=== PATIENT | female | born 1940 | race Caucasian/White ===

== ENCOUNTER 2020-12-08 16:19 | Inpatient (IN) ==
[2020-12-08] MEDS ORDERED: Naloxone 0.4 MG/ML INJ IVP PRN (22:36)
[2020-12-08] MEDS ORDERED: Acetaminophen 325 MG TABLET PO PRN (22:36)
[2020-12-08] MEDS ORDERED: Ondansetron 4 MG/2 ML VIAL IVP PRN (22:36)
[2020-12-08] MEDS ORDERED: *HR* Heparin 5,000 UNIT/ML VIAL IVP PRN ×2 (22:45)
[2020-12-08] MEDS ORDERED: 0.9 % Sodium Chloride 1,000 ML IVC SCH (22:45)
[2020-12-08] MEDS ORDERED: 0.9 % Sodium Chloride 1,000 ML IVC ONE (22:46)
[2020-12-08] MEDS ORDERED: D5% in Water 1,000 ML IVC PRN (22:56)
[2020-12-08] MEDS ORDERED: *HR* Dextrose 50 % in Water (Vial) 50 ML VIAL IVP PRN (22:56)
[2020-12-08] MEDS ORDERED: Dextrose Gel 15 GM/37.5 ML TUBE PO PRN (22:56)
[2020-12-08 23:31] LABS: Heparin anti-factor XA UFH 0.15 IU/mL (0.30-0.70); INR 1.5; Prothrombin Time 16.9 Seconds (9.4-12.1)
[2020-12-08 23:33] LABS: Activated Partial Thrombo Time 27.4 Seconds (26.0-36.0)
[2020-12-08 23:40] LABS: Hematocrit 39.5 % (35.3-44.9); Hemoglobin 12.3 g/dL (11.5-15.4); Mean Corpuscular HGB Conc 31.1 g/dL (31.6-35.5); Mean Corpuscular Volume 96.3 fL (83.0-100.0); Mean Platelet Volume 10.6 fL (9.4-12.4); Platelet Count 241 K/mcL (140-400); Red Cell Distribution Width 15.9 % (11.5-14.5); White Blood Count 7.7 K/mcL (4.3-11.1)
[2020-12-08] MEDS: Heparin 25,000UNIT/250ML 1/2NS 25,000 UNIT/250 ML IV.SOLN IVC SCH (23:45)
[2020-12-09] MEDS: Insulin LISPRO 300 UNITS/3 ML VIAL SUBQ SCH ×5 (00:05→21:42)
[2020-12-09 03:07] LABS: Basophils # 0.1 K/mcL (0.0-0.2); Basophils % 0.6 %; Eosinophils # 0.1 K/mcL (0.0-0.6); Eosinophils % 1.2 %; Hematocrit 42.2 % (35.3-44.9); Hemoglobin 12.9 g/dL (11.5-15.4); Immature Granulocytes % 0.5 % (0-4); Lymphocytes % 12.5 %; Mean Corpuscular HGB Conc 30.6 g/dL (31.6-35.5); Mean Corpuscular Hemoglobin 29.9 pg (28.0-33.3); Mean Corpuscular Volume 97.7 fL (83.0-100.0); Mean Platelet Volume 10.7 fL (9.4-12.4); Monocytes # 0.6 K/mcL (0.0-1.3); Monocytes % 7.8 %; Neutrophils # 6.2 K/mcL (1.6-8.9); Platelet Count 227 K/mcL (140-400); Red Blood Count 4.32 M/mcL (3.82-4.97); Red Cell Distribution Width 15.9 % (11.5-14.5); Segmented Neutrophils % 77.4 %; White Blood Count 8.1 K/mcL (4.3-11.1)
[2020-12-09 03:16] LABS: INR 1.5; Prothrombin Time 17.6 Seconds (9.4-12.1)
[2020-12-09 03:23] LABS: Calcium 8.7 mg/dL (8.6-10.3); Magnesium 1.9 mg/dL (1.6-2.6); Potassium 4.4 mEq/L (3.5-5.1)
[2020-12-09] MEDS: carvediloL 25 MG TABLET PO SCH (16:53)
[2020-12-09] MEDS ORDERED: *HR* Warfarin 2.5 MG TABLET PO ONE (18:00)
[2020-12-09] MEDS ORDERED: *HR* Warfarin 5 MG TABLET PO ONE (18:00)
[2020-12-09] MEDS ORDERED: Warfarin perPT PO PRN (18:00)
[2020-12-10] MEDS: Heparin 25,000UNIT/250ML 1/2NS 25,000 UNIT/250 ML IV.SOLN IVC SCH ×2 (03:31→22:42)
[2020-12-10] MEDS: Aspirin Enteric Coated 81 MG Tablet PO SCH (08:51)
[2020-12-10] MEDS: carvediloL 25 MG TABLET PO SCH ×2 (08:52→17:47)
[2020-12-10] MEDS: Insulin LISPRO 300 UNITS/3 ML VIAL SUBQ SCH ×4 (08:56→20:30)
[2020-12-10 10:12] LABS: INR 1.4; Prothrombin Time 15.6 Seconds (9.4-12.1)
[2020-12-10 10:19] LABS: Potassium 4.9 mEq/L (3.5-5.1)
[2020-12-10] MEDS ORDERED: 0.9 % Sodium Chloride 1,000 ML IVC SCH (12:30)
[2020-12-10] MEDS ORDERED: *HR* Warfarin 2.5 MG TABLET PO ONE (18:00)
[2020-12-10] MEDS: Insulin DETEMIR 100 UNIT/ML X5UNITS SUBQ SCH (20:30)
[2020-12-11 07:49] LABS: Basophils % 0.7 %; Eosinophils # 0.2 K/mcL (0.0-0.6); Eosinophils % 2.8 %; Hematocrit 35.6 % (35.3-44.9); Immature Granulocytes % 0.3 % (0-4); Lymphocytes # 0.7 K/mcL (0.6-4.6); Lymphocytes % 11.5 %; Mean Corpuscular HGB Conc 30.1 g/dL (31.6-35.5); Mean Corpuscular Hemoglobin 29.9 pg (28.0-33.3); Mean Corpuscular Volume 99.4 fL (83.0-100.0); Mean Platelet Volume 10.4 fL (9.4-12.4); Monocytes # 0.4 K/mcL (0.0-1.3); Monocytes % 6.3 %; Neutrophils # 4.7 K/mcL (1.6-8.9); Platelet Count 185 K/mcL (140-400); Red Blood Count 3.58 M/mcL (3.82-4.97); Red Cell Distribution Width 16.6 % (11.5-14.5); Segmented Neutrophils % 78.4 %
[2020-12-11 07:52] LABS: Hemoglobin 10.7 g/dL (11.5-15.4)
[2020-12-11 07:59] LABS: Heparin anti-factor XA UFH 0.56 IU/mL (0.30-0.70)
[2020-12-11 08:00] LABS: INR 1.2; Prothrombin Time 14.2 Seconds (9.4-12.1)
[2020-12-11] MEDS: carvediloL 25 MG TABLET PO SCH ×2 (08:06→17:05)
[2020-12-11 08:07] LABS: Calcium 8.5 mg/dL (8.6-10.3); Potassium 4.2 mEq/L (3.5-5.1)
[2020-12-11] MEDS: Insulin LISPRO 300 UNITS/3 ML VIAL SUBQ SCH ×4 (08:07→22:58)
[2020-12-11] MEDS: Aspirin Enteric Coated 81 MG Tablet PO SCH (08:07)
[2020-12-11] MEDS ORDERED: 0.9 % Sodium Chloride 1,000 ML IVC SCH (13:30)
[2020-12-11] MEDS ORDERED: *HR* Warfarin 5 MG TABLET PO ONE (18:00)
[2020-12-11] MEDS ORDERED: hydrOXYzine pamoate 25 MG CAPSULE PO ONE (20:24)
[2020-12-11] MEDS: Heparin 25,000UNIT/250ML 1/2NS 25,000 UNIT/250 ML IV.SOLN IVC SCH (22:51)
[2020-12-11] MEDS: Insulin DETEMIR 100 UNIT/ML X5UNITS SUBQ SCH (22:58)
[2020-12-12 05:08] LABS: Basophils % 0.3 %; Eosinophils # 0.2 K/mcL (0.0-0.6); Eosinophils % 3.8 %; Hematocrit 35.7 % (35.3-44.9); Hemoglobin 10.7 g/dL (11.5-15.4); Immature Granulocytes % 0.3 % (0-4); Lymphocytes # 0.7 K/mcL (0.6-4.6); Lymphocytes % 11.2 %; Mean Corpuscular Hemoglobin 29.7 pg (28.0-33.3); Mean Corpuscular Volume 99.2 fL (83.0-100.0); Mean Platelet Volume 10.7 fL (9.4-12.4); Monocytes # 0.6 K/mcL (0.0-1.3); Monocytes % 9.5 %; Neutrophils # 4.4 K/mcL (1.6-8.9); Platelet Count 172 K/mcL (140-400); Red Cell Distribution Width 17.1 % (11.5-14.5); Segmented Neutrophils % 74.9 %; White Blood Count 5.8 K/mcL (4.3-11.1)
[2020-12-12 05:23] LABS: INR 1.4; Prothrombin Time 16.4 Seconds (9.4-12.1)
[2020-12-12 05:25] LABS: Calcium 8.5 mg/dL (8.6-10.3); Potassium 4.2 mEq/L (3.5-5.1)
[2020-12-12] MEDS: Insulin LISPRO 300 UNITS/3 ML VIAL SUBQ SCH ×4 (07:40→20:23)
[2020-12-12] MEDS: Insulin DETEMIR 100 UNIT/ML X5UNITS SUBQ SCH ×2 (09:36→20:23)
[2020-12-12] MEDS: carvediloL 25 MG TABLET PO SCH ×2 (09:36→17:41)
[2020-12-12] MEDS: Aspirin Enteric Coated 81 MG Tablet PO SCH (09:36)
[2020-12-12] MEDS: *HR* Enoxaparin 60 MG/0.6 ML SYRINGE SQ SCH (09:36)
[2020-12-12] MEDS ORDERED: *HR* Warfarin 5 MG TABLET PO ONE (18:00)
[2020-12-13 05:15] LABS: INR 1.9; Prothrombin Time 21.3 Seconds (9.4-12.1)
[2020-12-13 05:23] LABS: Calcium 8.5 mg/dL (8.6-10.3); Potassium 4.4 mEq/L (3.5-5.1)
[2020-12-13] MEDS: Insulin LISPRO 300 UNITS/3 ML VIAL SUBQ SCH ×3 (07:48→16:15)
[2020-12-13] MEDS: Aspirin Enteric Coated 81 MG Tablet PO SCH (09:25)
[2020-12-13] MEDS: carvediloL 25 MG TABLET PO SCH ×2 (09:25→15:48)
[2020-12-13] MEDS: *HR* Enoxaparin 60 MG/0.6 ML SYRINGE SQ SCH (09:26)
[2020-12-13] MEDS: Insulin DETEMIR 100 UNIT/ML X5UNITS SUBQ SCH ×2 (09:26→21:30)
[2020-12-13] MEDS ORDERED: Dextrose Gel 15 GM/37.5 ML TUBE PO PRN (13:56)
[2020-12-13] MEDS ORDERED: QUEtiapine Fumarate 25 MG TABLET PO ONE (14:41)
[2020-12-13] MEDS ORDERED: *HR* Warfarin 2.5 MG TABLET PO ONE (18:00)
[2020-12-13] MEDS ORDERED: Haloperidol Lactate 5 MG/ML VIAL IVP ONE (21:53)
[2020-12-14 05:02] LABS: INR 2.7
[2020-12-14 05:07] LABS: Potassium 5.2 mEq/L (3.5-5.1)
[2020-12-14] MEDS: carvediloL 25 MG TABLET PO SCH ×2 (10:04→16:07)
[2020-12-14] MEDS: Aspirin Enteric Coated 81 MG Tablet PO SCH (10:04)
[2020-12-14] MEDS: Insulin DETEMIR 100 UNIT/ML X5UNITS SUBQ SCH ×2 (10:04→21:27)
[2020-12-14] MEDS: Insulin LISPRO 300 UNITS/3 ML VIAL SUBQ SCH ×3 (10:04→16:05)
[2020-12-14 10:47] LABS: VBG HCO3 19 mEq/L (21-27); VBG PCO2 35 mmHg (41-51); VBG PH 7.34 pH Units (7.32-7.42); VBG PO2 68 mmHg (25-50)
[2020-12-14 10:48] LABS: Calcium 9.2 mg/dL (8.6-10.3); Potassium 5.1 mEq/L (3.5-5.1)
[2020-12-14] MEDS: QUEtiapine Fumarate 25 MG TABLET PO SCH ×2 (12:07→21:27)
[2020-12-14] MEDS: cefTRIAXone 1,000 MG in Water for inj. (sterile) 10 ML IVP SCH (12:08)
[2020-12-14] MEDS ORDERED: Haloperidol Lactate 5 MG/ML VIAL IVP STA (18:19)
[2020-12-14] MEDS ORDERED: Sodium Bicarbonate 50 MEQ/50 ML VIAL IVP ONE (21:35)
[2020-12-15 07:48] LABS: Basophils % 0.6 %; Eosinophils # 0.2 K/mcL (0.0-0.6); Eosinophils % 4.4 %; Hematocrit 37.1 % (35.3-44.9); Hemoglobin 11.4 g/dL (11.5-15.4); Immature Granulocytes % 0.2 % (0-4); Lymphocytes # 0.5 K/mcL (0.6-4.6); Lymphocytes % 10.8 %; Mean Corpuscular HGB Conc 30.7 g/dL (31.6-35.5); Mean Corpuscular Hemoglobin 29.8 pg (28.0-33.3); Mean Corpuscular Volume 97.1 fL (83.0-100.0); Mean Platelet Volume 10.5 fL (9.4-12.4); Monocytes # 0.4 K/mcL (0.0-1.3); Monocytes % 8.7 %; Neutrophils # 3.6 K/mcL (1.6-8.9); Platelet Count 171 K/mcL (140-400); Red Blood Count 3.82 M/mcL (3.82-4.97); Red Cell Distribution Width 17.8 % (11.5-14.5); Segmented Neutrophils % 75.3 %; White Blood Count 4.8 K/mcL (4.3-11.1)
[2020-12-15] MEDS: Aspirin Enteric Coated 81 MG Tablet PO SCH (07:55)
[2020-12-15] MEDS: QUEtiapine Fumarate 25 MG TABLET PO SCH ×2 (07:56→20:27)
[2020-12-15] MEDS: carvediloL 25 MG TABLET PO SCH ×2 (07:56→16:18)
[2020-12-15] MEDS: Insulin LISPRO 300 UNITS/3 ML VIAL SUBQ SCH ×3 (07:57→16:12)
[2020-12-15] MEDS: cefTRIAXone 1,000 MG in Water for inj. (sterile) 10 ML IVP SCH (07:57)
[2020-12-15] MEDS: Insulin DETEMIR 100 UNIT/ML X5UNITS SUBQ SCH (08:03)
[2020-12-15 08:14] LABS: INR 2.5; Prothrombin Time 28.2 Seconds (9.4-12.1)
[2020-12-15 08:36] LABS: Calcium 9.3 mg/dL (8.6-10.3); Potassium 4.5 mEq/L (3.5-5.1)
[2020-12-15] MEDS ORDERED: Ipratropium/Albuterol Neb 3 ML IH PRN (15:42)
[2020-12-15 16:26] LABS: ABG Base Excess -3 mEq/L (-2 to 3); ABG HCO3 21 mEq/L (21-27); ABG Oxygen Saturation 97 % (95-98); ABG PCO2 32 mmHg (35-45); ABG PH 7.42 pH Units (7.32-7.45); ABG PO2 83 mmHg (85-104); ABG TCO2 22 mEq/L (20-26)
[2020-12-15] MEDS ORDERED: *HR* Warfarin 2.5 MG TABLET PO ONE (18:00)
[2020-12-16 02:27] LABS: INR 2.4; Prothrombin Time 26.8 Seconds (9.4-12.1)
[2020-12-16 02:32] LABS: Calcium 9.3 mg/dL (8.6-10.3); Phosphorous 3.1 mg/dL (2.7-4.5)
[2020-12-16 03:01] LABS: Folate 8.3 ng/mL (3.0-16.0)
[2020-12-16] MEDS: Aspirin Enteric Coated 81 MG Tablet PO SCH (08:04)
[2020-12-16] MEDS: QUEtiapine Fumarate 25 MG TABLET PO SCH ×2 (08:04→21:01)
[2020-12-16] MEDS: carvediloL 25 MG TABLET PO SCH ×2 (08:04→17:40)
[2020-12-16] MEDS: Folic Acid 1 MG TABLET PO SCH (08:04)
[2020-12-16] MEDS: Insulin LISPRO 300 UNITS/3 ML VIAL SUBQ SCH ×3 (08:08→17:41)
[2020-12-16] MEDS ORDERED: *HR* Warfarin 2.5 MG TABLET PO ONE (18:00)
[2020-12-16] MEDS: Insulin DETEMIR 100 UNIT/ML X5UNITS SUBQ SCH (21:01)
[2020-12-17 06:26] LABS: INR 2.3; Prothrombin Time 26.5 Seconds (9.4-12.1)
[2020-12-17 06:40] LABS: Calcium 8.7 mg/dL (8.6-10.3); Magnesium 1.9 mg/dL (1.6-2.6); Phosphorous 3.2 mg/dL (2.7-4.5)
[2020-12-17] MEDS: Insulin LISPRO 300 UNITS/3 ML VIAL SUBQ SCH ×3 (07:33→16:05)
[2020-12-17] MEDS: carvediloL 25 MG TABLET PO SCH ×2 (08:13→17:40)
[2020-12-17] MEDS: Vitamin B Complex/Vit C/Vit E 1 EACH TABLET PO SCH (08:13)
[2020-12-17] MEDS: QUEtiapine Fumarate 25 MG TABLET PO SCH ×2 (08:13→21:32)
[2020-12-17] MEDS: Aspirin Enteric Coated 81 MG Tablet PO SCH (08:13)
[2020-12-17] MEDS: Folic Acid 1 MG TABLET PO SCH (08:14)
[2020-12-17] MEDS ORDERED: *HR* Warfarin 2.5 MG TABLET PO ONE (18:00)
[2020-12-17] MEDS: Insulin DETEMIR 100 UNIT/ML X5UNITS SUBQ SCH (21:32)
[2020-12-18 01:33] LABS: Calcium 8.8 mg/dL (8.6-10.3); Phosphorous 3.5 mg/dL (2.7-4.5); Potassium 5.1 mEq/L (3.5-5.1)
[2020-12-18] MEDS: Aspirin Enteric Coated 81 MG Tablet PO SCH (09:30)
[2020-12-18] MEDS: Vitamin B Complex/Vit C/Vit E 1 EACH TABLET PO SCH (09:30)
[2020-12-18] MEDS: Folic Acid 1 MG TABLET PO SCH (09:30)
[2020-12-18] MEDS: QUEtiapine Fumarate 25 MG TABLET PO SCH ×2 (09:31→20:11)
[2020-12-18] MEDS: carvediloL 25 MG TABLET PO SCH ×2 (09:31→18:26)
[2020-12-18] MEDS: Insulin LISPRO 300 UNITS/3 ML VIAL SUBQ SCH ×3 (09:37→18:26)
[2020-12-18 09:52] LABS: INR 2.2; Prothrombin Time 24.6 Seconds (9.4-12.1)
[2020-12-18] MEDS ORDERED: *HR* Warfarin 2.5 MG TABLET PO ONE (18:00)
[2020-12-18] MEDS: Insulin DETEMIR 100 UNIT/ML X5UNITS SUBQ SCH (20:10)
[2020-12-19 02:08] LABS: INR 2.4; Prothrombin Time 27.6 Seconds (9.4-12.1)
[2020-12-19 02:19] LABS: Calcium 8.7 mg/dL (8.6-10.3); Phosphorous 3.7 mg/dL (2.7-4.5); Potassium 5.1 mEq/L (3.5-5.1)
[2020-12-19] MEDS: Folic Acid 1 MG TABLET PO SCH (08:00)
[2020-12-19] MEDS: QUEtiapine Fumarate 25 MG TABLET PO SCH ×2 (08:00→21:25)
[2020-12-19] MEDS: carvediloL 25 MG TABLET PO SCH ×2 (08:00→16:20)
[2020-12-19] MEDS: Insulin LISPRO 300 UNITS/3 ML VIAL SUBQ SCH ×3 (08:00→16:20)
[2020-12-19] MEDS: Vitamin B Complex/Vit C/Vit E 1 EACH TABLET PO SCH (08:00)
[2020-12-19] MEDS: Aspirin Enteric Coated 81 MG Tablet PO SCH (08:00)
[2020-12-19] MEDS ORDERED: Torsemide 20 MG TABLET PO SCH (09:00)
[2020-12-19] MEDS ORDERED: *HR* Warfarin 2.5 MG TABLET PO ONE (18:00)
[2020-12-19] MEDS: Insulin DETEMIR 100 UNIT/ML X5UNITS SUBQ SCH (21:25)
[2020-12-20 02:49] LABS: Basophils % 0.5 %; Hemoglobin 10.2 g/dL (11.5-15.4); Mean Platelet Volume 11.2 fL (9.4-12.4)
[2020-12-20 02:51] LABS: Eosinophils # 0.1 K/mcL (0.0-0.6); Eosinophils % 0.8 %; Hematocrit 34.9 % (35.3-44.9); Immature Granulocytes % 0.5 % (0-4); Immature Platelets 5.5 % (1.1-6.1); Lymphocytes # 0.7 K/mcL (0.6-4.6); Lymphocytes % 9.3 %; Mean Corpuscular HGB Conc 29.2 g/dL (31.6-35.5); Mean Corpuscular Hemoglobin 29.5 pg (28.0-33.3); Mean Corpuscular Volume 100.9 fL (83.0-100.0); Monocytes # 0.8 K/mcL (0.0-1.3); Neutrophils # 6.2 K/mcL (1.6-8.9); Platelet Count 149 K/mcL (140-400); Red Blood Count 3.46 M/mcL (3.82-4.97); Red Cell Distribution Width 17.4 % (11.5-14.5); Segmented Neutrophils % 78.9 %; White Blood Count 7.9 K/mcL (4.3-11.1)
[2020-12-20 02:56] LABS: INR 2.4; Prothrombin Time 27.3 Seconds (9.4-12.1)
[2020-12-20 03:11] LABS: Calcium 8.8 mg/dL (8.6-10.3); Phosphorous 4.4 mg/dL (2.7-4.5); Potassium 5.3 mEq/L (3.5-5.1)
[2020-12-20] MEDS ORDERED: Albumin 25% 25gram/100mL 25 GM/100 ML IV.SOLN IVPB SCH (08:00)
[2020-12-20] MEDS: Insulin LISPRO 300 UNITS/3 ML VIAL SUBQ SCH ×3 (08:28→17:08)
[2020-12-20] MEDS: Vitamin B Complex/Vit C/Vit E 1 EACH TABLET PO SCH (08:51)
[2020-12-20] MEDS: carvediloL 25 MG TABLET PO SCH ×2 (08:51→16:50)
[2020-12-20] MEDS: QUEtiapine Fumarate 25 MG TABLET PO SCH (08:51)
[2020-12-20] MEDS: Folic Acid 1 MG TABLET PO SCH (08:51)
[2020-12-20] MEDS: Aspirin Enteric Coated 81 MG Tablet PO SCH (08:52)
[2020-12-20 15:46] VITALS: BP 125/73
[2020-12-20] MEDS ORDERED: *HR* Warfarin 2.5 MG TABLET PO ONE (18:00)
== END 2020-12-20 17:15 | DRG 637 ==
LOC: 2NENU → SUATTDRO 21:11 → 2ANU 12-09 22:49 → SUATTDRO 12-11 13:21
PROVIDERS: ADMIT Family Medicine; ATTEND Internal Medicine

== ENCOUNTER 2021-01-21 20:28 | Inpatient (IN) ==
[2021-01-21 21:55] LABS: Basophils % 0.7 %; Eosinophils # 0.2 K/mcL (0.0-0.6); Eosinophils % 2.5 %; Hematocrit 31.3 % (35.3-44.9); Hemoglobin 9.3 g/dL (11.5-15.4); Immature Granulocytes % 0.3 % (0-4); Lymphocytes # 0.8 K/mcL (0.6-4.6); Lymphocytes % 13.1 %; Mean Corpuscular HGB Conc 29.7 g/dL (31.6-35.5); Mean Corpuscular Hemoglobin 29.1 pg (28.0-33.3); Mean Corpuscular Volume 97.8 fL (83.0-100.0); Mean Platelet Volume 9.9 fL (9.4-12.4); Monocytes # 0.5 K/mcL (0.0-1.3); Monocytes % 8.3 %; Neutrophils # 4.6 K/mcL (1.6-8.9); Platelet Count 196 K/mcL (140-400); Red Cell Distribution Width 16.7 % (11.5-14.5); Segmented Neutrophils % 75.1 %; White Blood Count 6.1 K/mcL (4.3-11.1)
[2021-01-21 22:12] LABS: Troponin I 0.03 ng/mL (< 0.04)
[2021-01-22] MEDS ORDERED: Furosemide 40 MG/4 ML VIAL IVP ONE (00:11)
[2021-01-22] MEDS ORDERED: methylPREDNISolone 125 MG/2 ML VIAL IVP ONE (00:12)
[2021-01-22] MEDS: Ipratropium/Albuterol Neb 3 ML IH SCH ×3 (00:45→21:28)
[2021-01-22] MEDS ORDERED: Ondansetron 4 MG/2 ML VIAL IVP PRN (00:54)
[2021-01-22] MEDS ORDERED: Acetaminophen 325 MG TABLET PO PRN (00:54)
[2021-01-22] MEDS ORDERED: Naloxone 0.4 MG/ML INJ IVP PRN (00:54)
[2021-01-22] MEDS ORDERED: D5% in Water 1,000 ML IVC PRN (00:57)
[2021-01-22] MEDS ORDERED: Dextrose Gel 15 GM/37.5 ML TUBE PO PRN ×2 (00:57)
[2021-01-22] MEDS ORDERED: Perflutren Lipid Microsphere 1.3 ML in 0.9 % Sodium Chloride 8.7 ML IVP PRN (00:58)
[2021-01-22] MEDS: Insulin LISPRO 300 UNITS/3 ML VIAL SUBQ SCH ×4 (02:15→17:27)
[2021-01-22 03:39] LABS: Basophils % 0.6 %; Eosinophils # 0.2 K/mcL (0.0-0.6); Eosinophils % 3.7 %; Hematocrit 31.8 % (35.3-44.9); Hemoglobin 9.3 g/dL (11.5-15.4); Immature Granulocytes % 0.2 % (0-4); Lymphocytes # 0.6 K/mcL (0.6-4.6); Mean Corpuscular HGB Conc 29.2 g/dL (31.6-35.5); Mean Corpuscular Hemoglobin 28.7 pg (28.0-33.3); Mean Corpuscular Volume 98.1 fL (83.0-100.0); Monocytes # 0.2 K/mcL (0.0-1.3); Monocytes % 4.8 %; Neutrophils # 3.8 K/mcL (1.6-8.9); Platelet Count 182 K/mcL (140-400); Red Blood Count 3.24 M/mcL (3.82-4.97); Red Cell Distribution Width 16.6 % (11.5-14.5); Segmented Neutrophils % 77.7 %; White Blood Count 4.8 K/mcL (4.3-11.1)
[2021-01-22 03:48] LABS: INR 2.7; Prothrombin Time 30.1 Seconds (9.4-12.1)
[2021-01-22] MEDS ORDERED: Ipratropium/Albuterol Neb 3 ML IH PRN (04:00)
[2021-01-22 04:03] LABS: Albumin 3.4 g/dL (3.5-5.7); Albumin/Globulin Ratio 1.2 (1.1-2.2); Bilirubin,Total 0.9 mg/dL (0.3-1.0); Calcium 8.8 mg/dL (8.6-10.3); Globulin 2.8 g/dL (2.4-3.5); Magnesium 1.8 mg/dL (1.6-2.6); Potassium 3.9 mEq/L (3.5-5.1); Total Protein 6.2 g/dL (6.4-8.9)
[2021-01-22] MEDS ORDERED: MethylPREDNISolone 40 MG/ML VIAL IVP SCH (06:00)
[2021-01-22] MEDS ORDERED: FOLIC ACID 0.4 MG PO SCH (09:00)
[2021-01-22] MEDS ORDERED: Furosemide 40 MG/4 ML VIAL IVP SCH (09:00)
[2021-01-22] MEDS: Azithromycin 500 MG in 0.9 % Sodium Chloride 250 ML IVPB SCH (09:05)
[2021-01-22] MEDS: Gabapentin 300 MG CAPSULE PO SCH ×3 (09:05→20:08)
[2021-01-22] MEDS: QUEtiapine Fumarate 25 MG TABLET PO SCH ×2 (09:05→20:07)
[2021-01-22] MEDS: Aspirin Enteric Coated 81 MG Tablet PO SCH (09:05)
[2021-01-22] MEDS: predniSONE 20 MG TABLET PO SCH (09:05)
[2021-01-22] MEDS: carvediloL 6.25 MG TABLET PO SCH ×2 (09:06→17:06)
[2021-01-22] MEDS ORDERED: *HR* Warfarin 2.5 MG TABLET PO SCH (18:00)
[2021-01-22] MEDS: Insulin DETEMIR 100 UNIT/ML X5UNITS SUBQ SCH (20:08)
[2021-01-22] MEDS ORDERED: Insulin DETEMIR 100 UNIT/ML X5UNITS SUBQ SCH (21:00)
[2021-01-22] MEDS ORDERED: Insulin LISPRO 300 UNITS/3 ML VIAL SUBQ SCH (21:00)
[2021-01-22] MEDS: Budesonide Neb 0.5 MG/2 ML IH SCH (21:28)
[2021-01-23 03:13] LABS: Hematocrit 30.2 % (35.3-44.9); Mean Corpuscular HGB Conc 29.8 g/dL (31.6-35.5); Mean Corpuscular Volume 97.4 fL (83.0-100.0); Mean Platelet Volume 10.1 fL (9.4-12.4); Platelet Count 198 K/mcL (140-400); Red Cell Distribution Width 16.5 % (11.5-14.5); Segmented Neutrophils % 86.2 %; White Blood Count 7.2 K/mcL (4.3-11.1)
[2021-01-23 03:14] LABS: Immature Granulocytes % 0.6 % (0-4); Lymphocytes # 0.5 K/mcL (0.6-4.6); Lymphocytes % 6.5 %; Monocytes # 0.5 K/mcL (0.0-1.3); Monocytes % 6.7 %; Neutrophils # 6.2 K/mcL (1.6-8.9)
[2021-01-23] MEDS: Ipratropium/Albuterol Neb 3 ML IH SCH ×6 (03:28→23:03)
[2021-01-23 03:34] LABS: INR 3.1; Prothrombin Time 35.1 Seconds (9.4-12.1)
[2021-01-23 03:42] LABS: Calcium 8.7 mg/dL (8.6-10.3); Magnesium 1.9 mg/dL (1.6-2.6); Potassium 3.8 mEq/L (3.5-5.1)
[2021-01-23 03:53] LABS: Thyroid Stimulating Hormone 0.569 mcIU/mL (0.340-5.600)
[2021-01-23 04:09] LABS: Folate > 22.3 ng/mL (3.0-16.0); Vitamin B12 602 pg/mL (250-1100)
[2021-01-23 07:33] LABS: Estimated Average Glucose 214 mg/dl; Hemoglobin A1C 9.1 %
[2021-01-23] MEDS: Insulin LISPRO 300 UNITS/3 ML VIAL SUBQ SCH ×4 (07:54→20:27)
[2021-01-23] MEDS: carvediloL 6.25 MG TABLET PO SCH ×2 (08:00→17:57)
[2021-01-23] MEDS: predniSONE 20 MG TABLET PO SCH (08:00)
[2021-01-23] MEDS: Gabapentin 300 MG CAPSULE PO SCH ×3 (08:01→20:04)
[2021-01-23] MEDS: Folic Acid 1 MG TABLET PO SCH (08:01)
[2021-01-23] MEDS: Aspirin Enteric Coated 81 MG Tablet PO SCH (08:01)
[2021-01-23] MEDS: QUEtiapine Fumarate 25 MG TABLET PO SCH ×2 (08:02→20:04)
[2021-01-23] MEDS: Azithromycin 500 MG in 0.9 % Sodium Chloride 250 ML IVPB SCH (08:03)
[2021-01-23] MEDS: Budesonide Neb 0.5 MG/2 ML IH SCH ×2 (08:23→19:56)
[2021-01-23] MEDS ORDERED: Warfarin perPT PO PRN (18:00)
[2021-01-23] MEDS ORDERED: *HR* Warfarin 1 MG TABLET PO ONE (18:00)
[2021-01-23] MEDS: Insulin DETEMIR 100 UNIT/ML X5UNITS SUBQ SCH (20:04)
[2021-01-23] MEDS: Melatonin 3 MG TABLET PO SCH (20:04)
[2021-01-24 01:49] LABS: Hematocrit 28.3 % (35.3-44.9); Immature Granulocytes % 0.4 % (0-4); Lymphocytes # 0.6 K/mcL (0.6-4.6); Lymphocytes % 5.9 %; Mean Corpuscular HGB Conc 31.8 g/dL (31.6-35.5); Mean Corpuscular Hemoglobin 30.6 pg (28.0-33.3); Mean Corpuscular Volume 96.3 fL (83.0-100.0); Mean Platelet Volume 10.1 fL (9.4-12.4); Monocytes # 0.6 K/mcL (0.0-1.3); Monocytes % 6.1 %; Neutrophils # 9.3 K/mcL (1.6-8.9); Platelet Count 200 K/mcL (140-400); Red Blood Count 2.94 M/mcL (3.82-4.97); Red Cell Distribution Width 16.6 % (11.5-14.5); Segmented Neutrophils % 87.6 %; White Blood Count 10.6 K/mcL (4.3-11.1)
[2021-01-24 01:58] LABS: INR 3.6; Prothrombin Time 39.9 Seconds (9.4-12.1)
[2021-01-24 02:10] LABS: Calcium 8.3 mg/dL (8.6-10.3); Magnesium 1.9 mg/dL (1.6-2.6); Potassium 3.8 mEq/L (3.5-5.1)
[2021-01-24] MEDS: Ipratropium/Albuterol Neb 3 ML IH SCH ×5 (04:15→20:05)
[2021-01-24] MEDS: Insulin LISPRO 300 UNITS/3 ML VIAL SUBQ SCH ×4 (08:40→20:55)
[2021-01-24] MEDS: carvediloL 6.25 MG TABLET PO SCH ×2 (09:06→19:51)
[2021-01-24] MEDS: QUEtiapine Fumarate 25 MG TABLET PO SCH ×2 (09:07→20:55)
[2021-01-24] MEDS: Folic Acid 1 MG TABLET PO SCH (09:07)
[2021-01-24] MEDS: Azithromycin 500 MG in 0.9 % Sodium Chloride 250 ML IVPB SCH (09:07)
[2021-01-24] MEDS: Aspirin Enteric Coated 81 MG Tablet PO SCH (09:07)
[2021-01-24] MEDS: Gabapentin 300 MG CAPSULE PO SCH ×4 (09:50→20:55)
[2021-01-24] MEDS ORDERED: *HR* LORazepam 2 MG/ML VIAL IVP ONE (10:41)
[2021-01-24] MEDS ORDERED: *HR* Midazolam HCl 5 MG/5 ML VIAL IVP ONE (10:41)
[2021-01-24] MEDS ORDERED: *HR* Etomidate 20 MG/10 ML AMPUL IVP ONE (10:41)
[2021-01-24] MEDS: Budesonide Neb 0.5 MG/2 ML IH SCH ×2 (11:21→20:05)
[2021-01-24 11:25] LABS: ABG Base Excess 3 mEq/L (-2 to 3); ABG HCO3 28 mEq/L (21-27); ABG Oxygen Saturation 87 % (95-98); ABG PCO2 43 mmHg (35-45); ABG PH 7.42 pH Units (7.32-7.45); ABG PO2 52 mmHg (85-104); ABG TCO2 29 mEq/L (20-26)
[2021-01-24] MEDS: FentaNYL (PF) 1,000 MCG/100 ML IV.SOLN IVC SCH (18:25)
[2021-01-24 19:09] LABS: Blood Gas VT 400 cc; VBG HCO3 26 mEq/L (21-27); VBG PCO2 49 mmHg (41-51); VBG PH 7.34 pH Units (7.32-7.42); VBG PO2 56 mmHg (25-50)
[2021-01-24] MEDS ORDERED: Artificial Tears SOLN 15 ML BOTTLE BOTH EYES PRN (19:56)
[2021-01-24 19:58] LABS: Adenovirus Not Detected (Not Detect); Coronavirus 229E Not Detected (Not Detect); Coronavirus HKU1 Not Detected (Not Detect); Coronavirus NL63 Not Detected (Not Detect); Coronavirus OC43 Not Detected (Not Detect)
[2021-01-24 19:59] LABS: Bordetella Pertussis Not Detected (Not Detect); Chlamydophila pneumoniae Not Detected (Not Detect); Human Metapneumovirus Not Detected (Not Detect); Human Rhinovirus/Enterovirus Not Detected (Not Detect); Influenza A Subtype 2009 H1 Not Detected (Not Detect); Influenza B Not Detected (Not Detect); Mycoplasma pneumoniae Not Detected (Not Detect); Parainfluenza Virus 1 Not Detected (Not Detect); Parainfluenza Virus 2 Not Detected (Not Detect); Parainfluenza Virus 3 Not Detected (Not Detect); Parainfluenza Virus 4 Not Detected (Not Detect); Respiratory Syncytial Virus Not Detected (Not Detect); SARS-CoV-2 Not Detected (Not Detect)
[2021-01-24 20:10] LABS: Bilirubin,Urine Negative (Negative); Blood,Urine Negative (Negative); Clarity,Urine Clear (Clear); Color,Urine Yellow (Yellow); Glucose,Urine (UA) Normal (Normal); Hyaline Casts,Urine Many per lpf (None Seen); Ketones,Urine Negative (Negative); Leukocyte Esterase,Urine Small (Negative); Mucus,Urine Few per lpf (None-Few); Nitrite,Urine Negative (Negative); Protein,Urine 30 mg/dL (Neg-Trace); RBC,Urine 0-3 per hpf (0-3); Specific Gravity,Urine 1.018 (1.010-1.025); Squamous Epithelial Cell,Urine Few per hpf (None-Few); Urobilinogen,Urine Normal (Normal)
[2021-01-24 20:47] LABS: Eosinophils % 0.2 %; Hematocrit 32.3 % (35.3-44.9); Hemoglobin 9.7 g/dL (11.5-15.4); Immature Granulocytes % 0.3 % (0-4); Lymphocytes # 0.5 K/mcL (0.6-4.6); Lymphocytes % 7.4 %; Mean Corpuscular Hemoglobin 29.5 pg (28.0-33.3); Mean Corpuscular Volume 98.2 fL (83.0-100.0); Mean Platelet Volume 9.7 fL (9.4-12.4); Monocytes # 0.4 K/mcL (0.0-1.3); Monocytes % 6.7 %; Neutrophils # 5.7 K/mcL (1.6-8.9); Platelet Count 187 K/mcL (140-400); Red Blood Count 3.29 M/mcL (3.82-4.97); Red Cell Distribution Width 16.6 % (11.5-14.5); Segmented Neutrophils % 85.4 %; White Blood Count 6.6 K/mcL (4.3-11.1)
[2021-01-24 20:50] LABS: VBG Ionized Calcium 1.13 mmol/L (1.15-1.35)
[2021-01-24] MEDS: Melatonin 3 MG TABLET PO SCH (20:55)
[2021-01-24] MEDS: Chlorhexidine Rinse 15 ML MOUTHWASH MM SCH (20:58)
[2021-01-24] MEDS: Pantoprazole 40 MG VIAL IVP SCH (20:58)
[2021-01-24] MEDS: Artificial Tears SOLN 15 ML BOTTLE BOTH EYES SCH ×2 (20:59→23:27)
[2021-01-24 21:09] LABS: Albumin 3.3 g/dL (3.5-5.7); Albumin/Globulin Ratio 1.2 (1.1-2.2); Bilirubin,Direct 0.3 mg/dL (0.0-0.2); Bilirubin,Indirect 0.6 mg/dL (0.0-1.0); Bilirubin,Total 0.9 mg/dL (0.3-1.0); Calcium 8.5 mg/dL (8.6-10.3); Globulin 2.8 g/dL (2.4-3.5); Phosphorous 3.7 mg/dL (2.7-4.5); Potassium 3.6 mEq/L (3.5-5.1); Total Protein 6.1 g/dL (6.4-8.9); Troponin I 0.03 ng/mL (< 0.04)
[2021-01-24] MEDS: *HR* Dextrose 50 % in Water (Vial) 50 ML VIAL IVP PRN (21:24)
[2021-01-25] MEDS: Artificial Tears SOLN 15 ML BOTTLE BOTH EYES SCH ×6 (03:24→23:32)
[2021-01-25 03:27] LABS: Basophils % 0.2 %; Hematocrit 31.1 % (35.3-44.9); Hemoglobin 9.3 g/dL (11.5-15.4); Immature Granulocytes % 0.5 % (0-4); Lymphocytes # 0.6 K/mcL (0.6-4.6); Lymphocytes % 10.1 %; Mean Corpuscular HGB Conc 29.9 g/dL (31.6-35.5); Mean Corpuscular Hemoglobin 28.9 pg (28.0-33.3); Mean Corpuscular Volume 96.6 fL (83.0-100.0); Monocytes # 0.5 K/mcL (0.0-1.3); Monocytes % 7.4 %; Neutrophils # 5.2 K/mcL (1.6-8.9); Platelet Count 179 K/mcL (140-400); Red Blood Count 3.22 M/mcL (3.82-4.97); Red Cell Distribution Width 16.7 % (11.5-14.5); Segmented Neutrophils % 81.8 %; White Blood Count 6.4 K/mcL (4.3-11.1)
[2021-01-25 03:33] LABS: VBG Ionized Calcium 1.13 mmol/L (1.15-1.35)
[2021-01-25 03:39] LABS: INR 3.6; Prothrombin Time 39.8 Seconds (9.4-12.1)
[2021-01-25 03:48] LABS: Albumin 3.1 g/dL (3.5-5.7); Albumin/Globulin Ratio 1.3 (1.1-2.2); Bilirubin,Direct 0.2 mg/dL (0.0-0.2); Bilirubin,Indirect 0.6 mg/dL (0.0-1.0); Bilirubin,Total 0.8 mg/dL (0.3-1.0); Calcium 8.3 mg/dL (8.6-10.3); Globulin 2.4 g/dL (2.4-3.5); Magnesium 1.9 mg/dL (1.6-2.6); Phosphorous 2.9 mg/dL (2.7-4.5); Potassium 4.3 mEq/L (3.5-5.1); Total Protein 5.5 g/dL (6.4-8.9)
[2021-01-25 04:38] LABS: ABG Base Excess 3 mEq/L (-2 to 3); ABG HCO3 28 mEq/L (21-27); ABG Oxygen Saturation 100 % (95-98); ABG PCO2 47 mmHg (35-45); ABG PH 7.39 pH Units (7.32-7.45); ABG PO2 279 mmHg (85-104); ABG TCO2 30 mEq/L (20-26); Blood Gas VT 400 cc
[2021-01-25] MEDS: Insulin LISPRO 300 UNITS/3 ML VIAL SUBQ SCH ×5 (08:30→23:55)
[2021-01-25] MEDS: carvediloL 6.25 MG TABLET PO SCH (08:31)
[2021-01-25] MEDS: Chlorhexidine Rinse 15 ML MOUTHWASH MM SCH ×2 (08:31→20:31)
[2021-01-25] MEDS: Gabapentin 300 MG CAPSULE PO SCH ×3 (08:31→20:31)
[2021-01-25] MEDS: Folic Acid 1 MG TABLET PO SCH (08:31)
[2021-01-25] MEDS: QUEtiapine Fumarate 25 MG TABLET PO SCH ×2 (08:32→20:31)
[2021-01-25] MEDS: Azithromycin 500 MG in 0.9 % Sodium Chloride 250 ML IVPB SCH (08:32)
[2021-01-25] MEDS: Pantoprazole 40 MG VIAL IVP SCH (08:32)
[2021-01-25] MEDS: Aspirin 81 MG TAB.CHEW GTUBE SCH (08:54)
[2021-01-25] MEDS: Budesonide Neb 0.5 MG/2 ML IH SCH ×2 (10:32→21:32)
[2021-01-25] MEDS ORDERED: *HR* LORazepam 2 MG/ML VIAL IVP PRN (10:49)
[2021-01-25] MEDS: Norepinephrine 4 MG/254 ML IV.SOLN IVC SCH (11:52)
[2021-01-25] MEDS: FentaNYL (PF) 1,000 MCG/100 ML IV.SOLN IVC SCH (12:19)
[2021-01-25 16:34] LABS: Prothrombin Time 44.8 Seconds (9.4-12.1)
[2021-01-26 03:14] LABS: VBG Ionized Calcium 1.11 mmol/L (1.15-1.35)
[2021-01-26] MEDS: Artificial Tears SOLN 15 ML BOTTLE BOTH EYES SCH ×6 (03:16→23:18)
[2021-01-26 03:29] LABS: INR 4.2
[2021-01-26 03:32] LABS: Basophils % 0.4 %; Eosinophils # 0.1 K/mcL (0.0-0.6); Eosinophils % 1.5 %; Hematocrit 29.5 % (35.3-44.9); Immature Granulocytes % 0.4 % (0-4); Lymphocytes # 0.7 K/mcL (0.6-4.6); Mean Corpuscular HGB Conc 30.5 g/dL (31.6-35.5); Mean Corpuscular Hemoglobin 29.9 pg (28.0-33.3); Mean Platelet Volume 9.7 fL (9.4-12.4); Monocytes # 0.5 K/mcL (0.0-1.3); Monocytes % 8.3 %; Neutrophils # 4.3 K/mcL (1.6-8.9); Platelet Count 160 K/mcL (140-400); Red Blood Count 3.01 M/mcL (3.82-4.97); Red Cell Distribution Width 16.5 % (11.5-14.5); Segmented Neutrophils % 77.4 %; White Blood Count 5.5 K/mcL (4.3-11.1)
[2021-01-26 03:38] LABS: Magnesium 1.9 mg/dL (1.6-2.6); Phosphorous 3.5 mg/dL (2.7-4.5); Potassium 4.6 mEq/L (3.5-5.1)
[2021-01-26] MEDS: Insulin LISPRO 300 UNITS/3 ML VIAL SUBQ SCH ×5 (04:03→19:54)
[2021-01-26] MEDS: FentaNYL (PF) 1,000 MCG/100 ML IV.SOLN IVC SCH (04:22)
[2021-01-26 04:34] LABS: ABG Base Excess 2 mEq/L (-2 to 3); ABG HCO3 27 mEq/L (21-27); ABG Oxygen Saturation 95 % (95-98); ABG PCO2 45 mmHg (35-45); ABG PH 7.38 pH Units (7.32-7.45); ABG PO2 79 mmHg (85-104); ABG TCO2 28 mEq/L (20-26); Blood Gas VT 400 cc
[2021-01-26] MEDS: Azithromycin 500 MG in 0.9 % Sodium Chloride 250 ML IVPB SCH (08:00)
[2021-01-26] MEDS: Budesonide Neb 0.5 MG/2 ML IH SCH ×2 (08:03→19:34)
[2021-01-26] MEDS: Chlorhexidine Rinse 15 ML MOUTHWASH MM SCH ×2 (09:30→19:44)
[2021-01-26] MEDS: Pantoprazole 40 MG VIAL IVP SCH (09:31)
[2021-01-26] MEDS: Gabapentin 300 MG CAPSULE PO SCH ×3 (09:32→19:44)
[2021-01-26] MEDS: QUEtiapine Fumarate 25 MG TABLET PO SCH ×2 (09:32→19:44)
[2021-01-26] MEDS: Aspirin 81 MG TAB.CHEW GTUBE SCH (09:32)
[2021-01-26] MEDS: Folic Acid 1 MG TABLET PO SCH (09:32)
[2021-01-26] MEDS: *HR* Dextrose 50 % in Water (Vial) 50 ML VIAL IVP PRN (11:06)
[2021-01-26] MEDS: Norepinephrine 4 MG/254 ML IV.SOLN IVC SCH (13:10)
[2021-01-27] MEDS: Insulin LISPRO 300 UNITS/3 ML VIAL SUBQ SCH ×6 (03:21→20:29)
[2021-01-27] MEDS: Artificial Tears SOLN 15 ML BOTTLE BOTH EYES SCH ×5 (03:34→20:28)
[2021-01-27 03:52] LABS: VBG Ionized Calcium 1.17 mmol/L (1.15-1.35)
[2021-01-27 04:12] LABS: ABG Base Excess 0 mEq/L (-2 to 3); ABG HCO3 26 mEq/L (21-27); ABG Oxygen Saturation 98 % (95-98); ABG PCO2 45 mmHg (35-45); ABG PH 7.37 pH Units (7.32-7.45); ABG PO2 113 mmHg (85-104); ABG TCO2 27 mEq/L (20-26); Blood Gas VT 400 cc
[2021-01-27 05:09] LABS: Basophils % 0.2 %; Eosinophils % 0.5 %; Hematocrit 29.6 % (35.3-44.9); Immature Granulocytes % 0.3 % (0-4); Lymphocytes # 0.7 K/mcL (0.6-4.6); Lymphocytes % 11.3 %; Mean Corpuscular HGB Conc 30.4 g/dL (31.6-35.5); Mean Corpuscular Hemoglobin 29.7 pg (28.0-33.3); Mean Corpuscular Volume 97.7 fL (83.0-100.0); Mean Platelet Volume 10.4 fL (9.4-12.4); Monocytes # 0.5 K/mcL (0.0-1.3); Monocytes % 7.9 %; Neutrophils # 5.2 K/mcL (1.6-8.9); Platelet Count 183 K/mcL (140-400); Red Blood Count 3.03 M/mcL (3.82-4.97); Red Cell Distribution Width 16.3 % (11.5-14.5); Segmented Neutrophils % 79.8 %; White Blood Count 6.5 K/mcL (4.3-11.1)
[2021-01-27 05:28] LABS: Albumin 2.8 g/dL (3.5-5.7); Albumin/Globulin Ratio 1.1 (1.1-2.2); Bilirubin,Total 0.9 mg/dL (0.3-1.0); Calcium 8.2 mg/dL (8.6-10.3); Globulin 2.5 g/dL (2.4-3.5); Magnesium 2.1 mg/dL (1.6-2.6); Phosphorous 4.9 mg/dL (2.7-4.5); Potassium 4.8 mEq/L (3.5-5.1); Total Protein 5.3 g/dL (6.4-8.9)
[2021-01-27] MEDS: FentaNYL (PF) 1,000 MCG/100 ML IV.SOLN IVC SCH (05:47)
[2021-01-27 07:20] LABS: INR 3.1; Prothrombin Time 34.3 Seconds (9.4-12.1)
[2021-01-27] MEDS: Budesonide Neb 0.5 MG/2 ML IH SCH ×2 (07:40→21:39)
[2021-01-27] MEDS: Chlorhexidine Rinse 15 ML MOUTHWASH MM SCH ×2 (08:21→20:46)
[2021-01-27] MEDS: Pantoprazole 40 MG VIAL IVP SCH (08:21)
[2021-01-27] MEDS: QUEtiapine Fumarate 25 MG TABLET PO SCH ×2 (08:22→20:46)
[2021-01-27] MEDS: Folic Acid 1 MG TABLET PO SCH (08:22)
[2021-01-27] MEDS: Gabapentin 300 MG CAPSULE PO SCH ×3 (08:23→20:46)
[2021-01-27] MEDS: Aspirin 81 MG TAB.CHEW GTUBE SCH (08:23)
[2021-01-27] MEDS: Norepinephrine 4 MG/254 ML IV.SOLN IVC SCH (12:45)
[2021-01-28] MEDS: Artificial Tears SOLN 15 ML BOTTLE BOTH EYES SCH ×3 (00:07→07:48)
[2021-01-28] MEDS: Insulin LISPRO 300 UNITS/3 ML VIAL SUBQ SCH ×3 (00:07→07:48)
[2021-01-28 03:47] LABS: VBG Ionized Calcium 1.18 mmol/L (1.15-1.35)
[2021-01-28 03:59] LABS: Basophils % 0.2 %; Eosinophils # 0.2 K/mcL (0.0-0.6); Eosinophils % 1.9 %; Hematocrit 30.5 % (35.3-44.9); Hemoglobin 9.3 g/dL (11.5-15.4); Immature Granulocytes % 0.6 % (0-4); Lymphocytes # 0.7 K/mcL (0.6-4.6); Lymphocytes % 8.4 %; Mean Corpuscular HGB Conc 30.5 g/dL (31.6-35.5); Mean Corpuscular Hemoglobin 29.7 pg (28.0-33.3); Mean Corpuscular Volume 97.4 fL (83.0-100.0); Mean Platelet Volume 10.1 fL (9.4-12.4); Monocytes # 0.7 K/mcL (0.0-1.3); Monocytes % 8.7 %; Neutrophils # 6.5 K/mcL (1.6-8.9); Platelet Count 201 K/mcL (140-400); Red Blood Count 3.13 M/mcL (3.82-4.97); Red Cell Distribution Width 16.5 % (11.5-14.5); Segmented Neutrophils % 80.2 %; White Blood Count 8.1 K/mcL (4.3-11.1)
[2021-01-28 04:06] LABS: Albumin 3.2 g/dL (3.5-5.7); Albumin/Globulin Ratio 1.2 (1.1-2.2); Bilirubin,Direct 0.3 mg/dL (0.0-0.2); Bilirubin,Indirect 0.6 mg/dL (0.0-1.0); Bilirubin,Total 0.9 mg/dL (0.3-1.0); Calcium 8.9 mg/dL (8.6-10.3); Globulin 2.7 g/dL (2.4-3.5); Magnesium 2.2 mg/dL (1.6-2.6); Phosphorous 4.2 mg/dL (2.7-4.5); Potassium 4.7 mEq/L (3.5-5.1); Total Protein 5.9 g/dL (6.4-8.9)
[2021-01-28 04:24] LABS: ABG Base Excess -1 mEq/L (-2 to 3); ABG HCO3 24 mEq/L (21-27); ABG Oxygen Saturation 98 % (95-98); ABG PCO2 42 mmHg (35-45); ABG PH 7.37 pH Units (7.32-7.45); ABG PO2 103 mmHg (85-104); ABG TCO2 26 mEq/L (20-26); Blood Gas Modality ASSIST CONTROL; Blood Gas VT 400 cc
[2021-01-28] MEDS: Budesonide Neb 0.5 MG/2 ML IH SCH (07:21)
[2021-01-28] MEDS: Folic Acid 1 MG TABLET PO SCH (07:46)
[2021-01-28] MEDS: Gabapentin 300 MG CAPSULE PO SCH (07:46)
[2021-01-28] MEDS: QUEtiapine Fumarate 25 MG TABLET PO SCH (07:47)
[2021-01-28] MEDS: Pantoprazole 40 MG VIAL IVP SCH (07:47)
[2021-01-28] MEDS: Chlorhexidine Rinse 15 ML MOUTHWASH MM SCH (07:47)
[2021-01-28] MEDS: Aspirin 81 MG TAB.CHEW GTUBE SCH (07:47)
[2021-01-28 08:07] LABS: INR 4.6; Prothrombin Time 51.2 Seconds (9.4-12.1)
[2021-01-28 09:10] LABS: INR 4.6; Prothrombin Time 50.8 Seconds (9.4-12.1)
[2021-01-28] MEDS: FentaNYL (PF) 1,000 MCG/100 ML IV.SOLN IVC SCH (10:56)
[2021-01-28 11:27] VITALS: BP 124/60
== END 2021-01-28 11:45 | disposition short-term general hospital (02) | DRG 291 ==
LOC: EMEROOARM 20:28 → 3ANU 20:28 → SUATTDRO 01-22 00:35 → 3ANU 01-22 01:02 → ICNU 01-24 18:13
PROVIDERS: ADMIT Student in an Organized Health Care Education/Training Program; ATTEND Pharmacist

== ENCOUNTER 2021-02-23 12:30 | Inpatient (IN) ==
[2021-02-23 14:04] LABS: Basophils % 0.4 %; Eosinophils % 0.2 %; Hematocrit 28.5 % (35.3-44.9); Hemoglobin 8.9 g/dL (11.5-15.4); Immature Granulocytes % 0.4 % (0-4); Lymphocytes # 0.5 K/mcL (0.6-4.6); Lymphocytes % 6.5 %; Mean Corpuscular HGB Conc 31.2 g/dL (31.6-35.5); Mean Corpuscular Hemoglobin 31.1 pg (28.0-33.3); Mean Corpuscular Volume 99.7 fL (83.0-100.0); Mean Platelet Volume 10.1 fL (9.4-12.4); Monocytes # 0.7 K/mcL (0.0-1.3); Monocytes % 9.2 %; Neutrophils # 6.7 K/mcL (1.6-8.9); Platelet Count 187 K/mcL (140-400); Red Blood Count 2.86 M/mcL (3.82-4.97); Red Cell Distribution Width 17.8 % (11.5-14.5); Segmented Neutrophils % 83.3 %
[2021-02-23 14:44] LABS: Albumin 3.4 g/dL (3.5-5.7); Albumin/Globulin Ratio 1.2 (1.1-2.2); Bilirubin,Direct 0.4 mg/dL (0.0-0.2); Bilirubin,Indirect 0.7 mg/dL (0.0-1.0); Bilirubin,Total 1.1 mg/dL (0.3-1.0); Calcium 8.7 mg/dL (8.6-10.3); Globulin 2.9 g/dL (2.4-3.5); Total Protein 6.3 g/dL (6.4-8.9); Troponin I 0.05 ng/mL (< 0.04)
[2021-02-23] MEDS ORDERED: 0.9 % Sodium Chloride 500 ML IVC STA (15:50)
[2021-02-23] MEDS ORDERED: Naloxone 0.4 MG/ML INJ IVP PRN (17:18)
[2021-02-23] MEDS ORDERED: *HR* Dextrose 50 % in Water (Vial) 50 ML VIAL IVP PRN (18:03)
[2021-02-23] MEDS ORDERED: D5% in Water 1,000 ML IVC PRN (18:03)
[2021-02-23] MEDS ORDERED: Furosemide 20 MG/2 ML VIAL IVP ONE (18:03)
[2021-02-23] MEDS ORDERED: Dextrose Gel 15 GM/37.5 ML TUBE PO PRN ×2 (18:03)
[2021-02-23] MEDS ORDERED: Apixaban 2.5 MG TABLET PO SCH (21:00)
[2021-02-23] MEDS: Insulin LISPRO 300 UNITS/3 ML VIAL SUBQ SCH (21:02)
[2021-02-23] MEDS: QUEtiapine Fumarate 25 MG TABLET PO SCH (21:14)
[2021-02-23] MEDS: hydrALAZINE 25 MG TABLET PO SCH (21:14)
[2021-02-23] MEDS ORDERED: *HR* Heparin 5,000 UNIT/ML VIAL IVP ONE (22:01)
[2021-02-23] MEDS ORDERED: *HR* Heparin 5,000 UNIT/ML VIAL IVP PRN ×2 (22:01)
[2021-02-23] MEDS ORDERED: Heparin 25,000UNIT/250ML 1/2NS 25,000 UNIT/250 ML IV.SOLN IVC SCH (22:15)
[2021-02-23 23:02] LABS: Hematocrit 25.2 % (35.3-44.9); Hemoglobin 7.5 g/dL (11.5-15.4); Mean Corpuscular HGB Conc 29.8 g/dL (31.6-35.5); Mean Corpuscular Hemoglobin 29.8 pg (28.0-33.3); Mean Platelet Volume 9.6 fL (9.4-12.4); Platelet Count 155 K/mcL (140-400); Red Blood Count 2.52 M/mcL (3.82-4.97); Red Cell Distribution Width 17.8 % (11.5-14.5); White Blood Count 6.2 K/mcL (4.3-11.1)
[2021-02-23 23:10] LABS: INR 3.1
[2021-02-24 03:52] LABS: Basophils % 0.5 %; Eosinophils # 0.1 K/mcL (0.0-0.6); Eosinophils % 1.1 %; Hematocrit 26.7 % (35.3-44.9); Immature Granulocytes % 0.3 % (0-4); Lymphocytes # 1.1 K/mcL (0.6-4.6); Lymphocytes % 17.2 %; Mean Corpuscular Hemoglobin 30.1 pg (28.0-33.3); Mean Corpuscular Volume 100.4 fL (83.0-100.0); Mean Platelet Volume 9.9 fL (9.4-12.4); Monocytes # 0.7 K/mcL (0.0-1.3); Monocytes % 11.2 %; Neutrophils # 4.3 K/mcL (1.6-8.9); Platelet Count 178 K/mcL (140-400); Red Blood Count 2.66 M/mcL (3.82-4.97); Red Cell Distribution Width 17.8 % (11.5-14.5); Segmented Neutrophils % 69.7 %; White Blood Count 6.2 K/mcL (4.3-11.1)
[2021-02-24 04:16] LABS: Calcium 8.5 mg/dL (8.6-10.3); Potassium 3.5 mEq/L (3.5-5.1)
[2021-02-24] MEDS: hydrALAZINE 25 MG TABLET PO SCH ×3 (04:20→19:47)
[2021-02-24] MEDS: Insulin LISPRO 300 UNITS/3 ML VIAL SUBQ SCH ×4 (07:40→19:49)
[2021-02-24] MEDS ORDERED: Furosemide 20 MG/2 ML VIAL IVP ONE ×2 (07:47→10:00)
[2021-02-24] MEDS ORDERED: Heparin 25,000UNIT/250ML 1/2NS 25,000 UNIT/250 ML IV.SOLN IVC SCH (09:00)
[2021-02-24] MEDS ORDERED: *HR* Heparin 5,000 UNIT/ML VIAL IVP PRN (09:00)
[2021-02-24] MEDS ORDERED: *HR* Heparin 5,000 UNIT/ML VIAL IVP ONE (09:00)
[2021-02-24] MEDS: Cholecalciferol (D-3) 1,000 UNIT (25MCG) TABLET PO SCH (10:40)
[2021-02-24] MEDS: Gabapentin 300 MG CAPSULE PO SCH (10:41)
[2021-02-24] MEDS: QUEtiapine Fumarate 25 MG TABLET PO SCH ×2 (10:41→19:46)
[2021-02-24] MEDS: Aspirin Enteric Coated 81 MG Tablet PO SCH (10:41)
[2021-02-24] MEDS: Folic Acid 1 MG TABLET PO SCH (10:41)
[2021-02-24] MEDS: carvediloL 25 MG TABLET PO SCH ×2 (10:41→17:52)
[2021-02-24] MEDS: Azithromycin 500 MG in 0.9 % Sodium Chloride 250 ML IVPB SCH (10:42)
[2021-02-24] MEDS: *HR* Heparin 5,000 UNIT/ML VIAL IVP PRN (19:46)
[2021-02-25 02:22] LABS: Hematocrit 23.2 % (35.3-44.9); Hemoglobin 6.8 g/dL (11.5-15.4); Mean Corpuscular HGB Conc 29.3 g/dL (31.6-35.5); Mean Corpuscular Hemoglobin 30.6 pg (28.0-33.3); Mean Corpuscular Volume 104.5 fL (83.0-100.0); Platelet Count 143 K/mcL (140-400); Red Blood Count 2.22 M/mcL (3.82-4.97); Red Cell Distribution Width 17.7 % (11.5-14.5); White Blood Count 5.5 K/mcL (4.3-11.1)
[2021-02-25 02:45] LABS: Albumin 2.9 g/dL (3.5-5.7); Albumin/Globulin Ratio 1.1 (1.1-2.2); Bilirubin,Total 0.7 mg/dL (0.3-1.0); Calcium 8.2 mg/dL (8.6-10.3); Globulin 2.7 g/dL (2.4-3.5); Potassium 4.1 mEq/L (3.5-5.1); Total Protein 5.6 g/dL (6.4-8.9)
[2021-02-25] MEDS: *HR* Heparin 5,000 UNIT/ML VIAL IVP PRN (02:46)
[2021-02-25] MEDS: hydrALAZINE 25 MG TABLET PO SCH (04:49)
[2021-02-25] MEDS: Insulin LISPRO 300 UNITS/3 ML VIAL SUBQ SCH ×2 (08:58→20:56)
[2021-02-25] MEDS ORDERED: 0.9 % Sodium Chloride 250 ML ONE (10:19)
[2021-02-25] MEDS: Aspirin Enteric Coated 81 MG Tablet PO SCH (10:37)
[2021-02-25] MEDS: Gabapentin 300 MG CAPSULE PO SCH (10:38)
[2021-02-25] MEDS: Cholecalciferol (D-3) 1,000 UNIT (25MCG) TABLET PO SCH (10:38)
[2021-02-25] MEDS: QUEtiapine Fumarate 25 MG TABLET PO SCH ×2 (10:38→21:05)
[2021-02-25] MEDS: Folic Acid 1 MG TABLET PO SCH (10:38)
[2021-02-25] MEDS: Metoprolol XL (24 HR) Succ 25 MG TAB.ER.24H PO SCH (15:07)
[2021-02-25] MEDS: Azithromycin 500 MG in 0.9 % Sodium Chloride 250 ML IVPB SCH (15:11)
[2021-02-25] MEDS ORDERED: 0.9 % Sodium Chloride 1,000 ML ONE (16:25)
[2021-02-25] MEDS: Albumin 25% 12.5gm/50mL 12.5 GM/50 ML IV.SOLN IVPB SCH (16:38)
[2021-02-25] MEDS ORDERED: Furosemide 20 MG/2 ML VIAL IVP SCH (17:00)
[2021-02-25 18:46] LABS: Hematocrit 29.2 % (35.3-44.9)
[2021-02-25] MEDS: Gabapentin 100 MG CAPSULE PO SCH (21:04)
[2021-02-25 22:36] LABS: Hematocrit 29.6 % (35.3-44.9); Hemoglobin 8.8 g/dL (11.5-15.4)
[2021-02-26] MEDS: Albumin 25% 12.5gm/50mL 12.5 GM/50 ML IV.SOLN IVPB SCH ×2 (01:11→09:04)
[2021-02-26 02:23] LABS: Bacteria,Urine Few per hpf (None-Few); Bilirubin,Urine Negative (Negative); Blood,Urine Small (Negative); Clarity,Urine Turbid (Clear); Color,Urine Yellow (Yellow); Glucose,Urine (UA) Normal (Normal); Hyaline Casts,Urine Many per lpf (None Seen); Ketones,Urine Negative (Negative); Leukocyte Esterase,Urine Large (Negative); Mucus,Urine Few per lpf (None-Few); Nitrite,Urine Negative (Negative); PH,Urine 5.5 pH Units (5.0-8.0); Protein,Urine 50 mg/dL (Neg-Trace); RBC,Urine 15-30 per hpf (0-3); Squamous Epithelial Cell,Urine Few per hpf (None-Few); WBC,Urine 50-100 per hpf (0-3)
[2021-02-26 03:53] LABS: Hematocrit 28.6 % (35.3-44.9); Hemoglobin 8.8 g/dL (11.5-15.4); Mean Corpuscular HGB Conc 30.8 g/dL (31.6-35.5); Mean Corpuscular Hemoglobin 30.6 pg (28.0-33.3); Mean Corpuscular Volume 99.3 fL (83.0-100.0); Mean Platelet Volume 9.7 fL (9.4-12.4); Platelet Count 174 K/mcL (140-400); Red Blood Count 2.88 M/mcL (3.82-4.97); Red Cell Distribution Width 17.8 % (11.5-14.5)
[2021-02-26 04:10] LABS: Albumin 3.3 g/dL (3.5-5.7); Albumin/Globulin Ratio 1.3 (1.1-2.2); Bilirubin,Total 1.1 mg/dL (0.3-1.0); Calcium 8.5 mg/dL (8.6-10.3); Globulin 2.6 g/dL (2.4-3.5); Potassium 4.4 mEq/L (3.5-5.1); Total Protein 5.9 g/dL (6.4-8.9)
[2021-02-26] MEDS: Folic Acid 1 MG TABLET PO SCH (09:05)
[2021-02-26] MEDS: Metoprolol XL (24 HR) Succ 25 MG TAB.ER.24H PO SCH (09:05)
[2021-02-26] MEDS: QUEtiapine Fumarate 25 MG TABLET PO SCH (09:05)
[2021-02-26] MEDS: Azithromycin 500 MG in 0.9 % Sodium Chloride 250 ML IVPB SCH (09:05)
[2021-02-26] MEDS: Cholecalciferol (D-3) 1,000 UNIT (25MCG) TABLET PO SCH (09:05)
[2021-02-26] MEDS: Aspirin Enteric Coated 81 MG Tablet PO SCH (09:06)
[2021-02-26] MEDS ORDERED: Furosemide 20 MG/2 ML VIAL IVP SCH (10:00)
[2021-02-26] MEDS: cefTRIAXone 1,000 MG in Water for inj. (sterile) 10 ML IVP SCH (13:20)
[2021-02-26] MEDS: Albumin 25% 25gram/100mL 25 GM/100 ML IV.SOLN IVPB SCH (15:49)
[2021-02-26] MEDS: Albuterol 2.5 MG/3 ML NEBULIZER IH SCH ×3 (18:38→23:49)
[2021-02-27] MEDS: QUEtiapine Fumarate 25 MG TABLET PO SCH ×3 (00:07→22:35)
[2021-02-27] MEDS: Gabapentin 100 MG CAPSULE PO SCH ×2 (00:07→22:35)
[2021-02-27] MEDS: Albumin 25% 25gram/100mL 25 GM/100 ML IV.SOLN IVPB SCH ×3 (00:08→16:58)
[2021-02-27 02:30] LABS: Hemoglobin 8.7 g/dL (11.5-15.4); Mean Corpuscular Hemoglobin 29.9 pg (28.0-33.3); Mean Corpuscular Volume 99.7 fL (83.0-100.0); Mean Platelet Volume 9.9 fL (9.4-12.4); Platelet Count 187 K/mcL (140-400); Red Blood Count 2.91 M/mcL (3.82-4.97); Red Cell Distribution Width 17.3 % (11.5-14.5); White Blood Count 5.3 K/mcL (4.3-11.1)
[2021-02-27 02:50] LABS: Albumin 3.9 g/dL (3.5-5.7); Albumin/Globulin Ratio 1.6 (1.1-2.2); Bilirubin,Total 0.8 mg/dL (0.3-1.0); Calcium 8.7 mg/dL (8.6-10.3); Globulin 2.5 g/dL (2.4-3.5); Potassium 4.4 mEq/L (3.5-5.1); Total Protein 6.4 g/dL (6.4-8.9)
[2021-02-27] MEDS: Albuterol 2.5 MG/3 ML NEBULIZER IH SCH ×2 (03:44→07:23)
[2021-02-27] MEDS: Aspirin Enteric Coated 81 MG Tablet PO SCH (08:25)
[2021-02-27] MEDS: Folic Acid 1 MG TABLET PO SCH (08:25)
[2021-02-27] MEDS: Cholecalciferol (D-3) 1,000 UNIT (25MCG) TABLET PO SCH (08:25)
[2021-02-27] MEDS: Azithromycin 250 MG TABLET PO SCH (08:25)
[2021-02-27] MEDS: cefTRIAXone 1,000 MG in Water for inj. (sterile) 10 ML IVP SCH (08:26)
[2021-02-27] MEDS: Metoprolol XL (24 HR) Succ 25 MG TAB.ER.24H PO SCH (08:41)
[2021-02-27] MEDS: Ipratropium/Albuterol Neb 3 ML IH SCH ×4 (11:26→23:03)
[2021-02-27] MEDS: Apixaban 5 MG TABLET PO SCH (22:34)
[2021-02-28] MEDS: Albumin 25% 25gram/100mL 25 GM/100 ML IV.SOLN IVPB SCH ×3 (00:16→17:37)
[2021-02-28 03:10] LABS: Hematocrit 29.6 % (35.3-44.9); Hemoglobin 8.8 g/dL (11.5-15.4); Mean Corpuscular HGB Conc 29.7 g/dL (31.6-35.5); Mean Corpuscular Hemoglobin 29.7 pg (28.0-33.3); Mean Platelet Volume 9.6 fL (9.4-12.4); Platelet Count 199 K/mcL (140-400); Red Blood Count 2.96 M/mcL (3.82-4.97); Red Cell Distribution Width 17.2 % (11.5-14.5); White Blood Count 5.6 K/mcL (4.3-11.1)
[2021-02-28 03:26] LABS: Albumin 4.4 g/dL (3.5-5.7); Albumin/Globulin Ratio 1.7 (1.1-2.2); Bilirubin,Total 0.8 mg/dL (0.3-1.0); Calcium 9.1 mg/dL (8.6-10.3); Globulin 2.6 g/dL (2.4-3.5); Potassium 4.6 mEq/L (3.5-5.1)
[2021-02-28] MEDS: Ipratropium/Albuterol Neb 3 ML IH SCH ×5 (03:45→20:26)
[2021-02-28] MEDS: Aspirin Enteric Coated 81 MG Tablet PO SCH (08:51)
[2021-02-28] MEDS: QUEtiapine Fumarate 25 MG TABLET PO SCH ×2 (08:52→22:32)
[2021-02-28] MEDS: Folic Acid 1 MG TABLET PO SCH (08:52)
[2021-02-28] MEDS: Apixaban 5 MG TABLET PO SCH ×2 (08:52→22:32)
[2021-02-28] MEDS: Cholecalciferol (D-3) 1,000 UNIT (25MCG) TABLET PO SCH (08:52)
[2021-02-28] MEDS: cefTRIAXone 1,000 MG in Water for inj. (sterile) 10 ML IVP SCH (08:53)
[2021-02-28] MEDS: Azithromycin 250 MG TABLET PO SCH (08:53)
[2021-02-28] MEDS: Metoprolol XL (24 HR) Succ 25 MG TAB.ER.24H PO SCH (08:57)
[2021-02-28] MEDS: Acetylcysteine 10% 2 ML INHSOL IH SCH ×3 (11:15→20:27)
[2021-02-28 12:53] LABS: ABG Base Excess -7 mEq/L (-2 to 3); ABG HCO3 18 mEq/L (21-27); ABG Oxygen Saturation 97 % (95-98); ABG PCO2 34 mmHg (35-45); ABG PH 7.33 pH Units (7.32-7.45); ABG PO2 94 mmHg (85-104); ABG TCO2 19 mEq/L (20-26)
[2021-02-28] MEDS ORDERED: Insulin LISPRO 300 UNITS/3 ML VIAL SUBQ SCH (14:06)
[2021-02-28] MEDS ORDERED: Furosemide 20 MG/2 ML VIAL IVP ONE ×2 (16:04→22:30)
[2021-02-28] MEDS: Insulin LISPRO 300 UNITS/3 ML VIAL SUBQ SCH (17:38)
[2021-02-28] MEDS: Gabapentin 100 MG CAPSULE PO SCH (22:33)
[2021-03-01] MEDS: Acetylcysteine 10% 2 ML INHSOL IH SCH ×7 (00:02→23:43)
[2021-03-01] MEDS: Ipratropium/Albuterol Neb 3 ML IH SCH ×7 (00:02→23:43)
[2021-03-01] MEDS: Albumin 25% 25gram/100mL 25 GM/100 ML IV.SOLN IVPB SCH ×3 (01:15→15:42)
[2021-03-01] MEDS: Insulin LISPRO 300 UNITS/3 ML VIAL SUBQ SCH ×3 (07:44→15:42)
[2021-03-01 07:51] LABS: Hematocrit 27.3 % (35.3-44.9); Hemoglobin 8.7 g/dL (11.5-15.4); Mean Corpuscular HGB Conc 31.9 g/dL (31.6-35.5); Mean Corpuscular Hemoglobin 31.1 pg (28.0-33.3); Mean Corpuscular Volume 97.5 fL (83.0-100.0); Platelet Count 220 K/mcL (140-400); White Blood Count 5.4 K/mcL (4.3-11.1)
[2021-03-01] MEDS: Cholecalciferol (D-3) 1,000 UNIT (25MCG) TABLET PO SCH (07:53)
[2021-03-01] MEDS: QUEtiapine Fumarate 25 MG TABLET PO SCH ×2 (07:53→21:08)
[2021-03-01] MEDS: Apixaban 5 MG TABLET PO SCH ×2 (07:53→21:10)
[2021-03-01] MEDS: Aspirin Enteric Coated 81 MG Tablet PO SCH (07:54)
[2021-03-01] MEDS: Folic Acid 1 MG TABLET PO SCH (07:54)
[2021-03-01] MEDS: cefTRIAXone 1,000 MG in Water for inj. (sterile) 10 ML IVP SCH (07:56)
[2021-03-01 08:18] LABS: Calcium 9.4 mg/dL (8.6-10.3); Potassium 4.5 mEq/L (3.5-5.1)
[2021-03-01 08:22] LABS: % Iron Saturation 11 % (15-50); Iron 18 mcg/dL (50-170); Transferrin 115 mg/dL (203-362)
[2021-03-01 08:30] LABS: Ferritin 471 ng/mL (10-120)
[2021-03-01 08:47] LABS: Folate > 22.3 ng/mL (3.0-16.0); Vitamin B12 274 pg/mL (250-1100)
[2021-03-01] MEDS ORDERED: Furosemide 80 MG in 0.9 % Sodium Chloride 50 ML IVPB ONE (09:01)
[2021-03-01] MEDS ORDERED: 0.9 % Sodium Chloride 250 ML IVC PRN (09:16)
[2021-03-01] MEDS ORDERED: *HR* Heparin 10,000 UNIT/10 ML VIAL IV PRN (09:16)
[2021-03-01] MEDS ORDERED: 0.9 % Sodium Chloride 1,000 ML PRIME SCH (09:30)
[2021-03-01] MEDS ORDERED: Lidocaine/EPI 1:100k 1% 50 ML VIAL ONE (09:58)
[2021-03-01] MEDS ORDERED: Heparin 1,000 UNITS/500 mL 500 ML ONE (09:58)
[2021-03-01 10:35] LABS: Hepatitis B Surface Antibody < 3.10 mIU/mL
[2021-03-01 10:46] LABS: Hepatitis B Surface Antigen Nonreactive (Nonreactive)
[2021-03-01 10:57] LABS: Complement C3 88 mg/dL (87-200)
[2021-03-01 11:14] LABS: Hepatitis B Core IgM Nonreactive (Nonreactive)
[2021-03-01] MEDS ORDERED: *HR* Heparin 5,000 UNIT/ML VIAL ONE (12:33)
[2021-03-01] MEDS: Gabapentin 100 MG CAPSULE PO SCH (21:11)
[2021-03-01 22:32] LABS: Alpha 2 Globulin (PEP) 0.73 g/dL (0.48-1.05); Beta Globulin (PEP) 0.83 g/dL (0.48-1.10)
[2021-03-02] MEDS: Albumin 25% 25gram/100mL 25 GM/100 ML IV.SOLN IVPB SCH ×2 (00:08→07:54)
[2021-03-02] MEDS: *HR* Metoprolol 5 MG/5 ML VIAL IVP PRN (00:08)
[2021-03-02] MEDS: Acetylcysteine 10% 2 ML INHSOL IH SCH ×6 (03:46→23:03)
[2021-03-02] MEDS: Ipratropium/Albuterol Neb 3 ML IH SCH ×6 (03:46→23:03)
[2021-03-02 06:27] LABS: Basophils # 0.1 K/mcL (0.0-0.2); Eosinophils # 0.2 K/mcL (0.0-0.6); Eosinophils % 3.6 %; Hematocrit 29.1 % (35.3-44.9); Hemoglobin 8.9 g/dL (11.5-15.4); Immature Granulocytes % 0.5 % (0-4); Lymphocytes # 0.6 K/mcL (0.6-4.6); Lymphocytes % 10.8 %; Mean Corpuscular HGB Conc 30.6 g/dL (31.6-35.5); Mean Platelet Volume 9.7 fL (9.4-12.4); Monocytes # 0.6 K/mcL (0.0-1.3); Monocytes % 10.1 %; Neutrophils # 4.3 K/mcL (1.6-8.9); Platelet Count 229 K/mcL (140-400); Red Blood Count 2.97 M/mcL (3.82-4.97); Red Cell Distribution Width 16.9 % (11.5-14.5); White Blood Count 5.9 K/mcL (4.3-11.1)
[2021-03-02 06:36] LABS: IFE Reflexed NOT DONE
[2021-03-02 06:49] LABS: Calcium 9.6 mg/dL (8.6-10.3); Potassium 4.2 mEq/L (3.5-5.1)
[2021-03-02] MEDS: Cholecalciferol (D-3) 1,000 UNIT (25MCG) TABLET PO SCH (07:52)
[2021-03-02] MEDS: Aspirin Enteric Coated 81 MG Tablet PO SCH (07:53)
[2021-03-02] MEDS: Apixaban 5 MG TABLET PO SCH ×2 (07:53→21:29)
[2021-03-02] MEDS: Folic Acid 1 MG TABLET PO SCH (07:53)
[2021-03-02] MEDS: QUEtiapine Fumarate 25 MG TABLET PO SCH ×2 (07:53→21:28)
[2021-03-02] MEDS: cefTRIAXone 1,000 MG in Water for inj. (sterile) 10 ML IVP SCH (07:54)
[2021-03-02] MEDS: Insulin LISPRO 300 UNITS/3 ML VIAL SUBQ SCH ×3 (07:55→17:22)
[2021-03-02] MEDS ORDERED: *HR* Heparin 10,000 UNIT/10 ML VIAL IV PRN (08:57)
[2021-03-02] MEDS ORDERED: 0.9 % Sodium Chloride 250 ML IVC PRN (08:57)
[2021-03-02] MEDS ORDERED: 0.9 % Sodium Chloride 1,000 ML PRIME SCH (09:00)
[2021-03-02] MEDS: Gabapentin 100 MG CAPSULE PO SCH (21:28)
[2021-03-02] MEDS: Insulin DETEMIR 100 UNIT/ML X5UNITS SUBQ SCH (21:29)
[2021-03-03 02:45] LABS: Basophils % 0.6 %; Eosinophils # 0.2 K/mcL (0.0-0.6); Eosinophils % 2.7 %; Hematocrit 27.9 % (35.3-44.9); Hemoglobin 8.7 g/dL (11.5-15.4); Immature Granulocytes % 0.4 % (0-4); Lymphocytes # 0.5 K/mcL (0.6-4.6); Lymphocytes % 6.7 %; Mean Corpuscular HGB Conc 31.2 g/dL (31.6-35.5); Mean Corpuscular Hemoglobin 30.3 pg (28.0-33.3); Mean Corpuscular Volume 97.2 fL (83.0-100.0); Mean Platelet Volume 9.6 fL (9.4-12.4); Monocytes # 0.6 K/mcL (0.0-1.3); Monocytes % 8.8 %; Neutrophils # 5.4 K/mcL (1.6-8.9); Platelet Count 215 K/mcL (140-400); Red Blood Count 2.87 M/mcL (3.82-4.97); Red Cell Distribution Width 17.2 % (11.5-14.5); Segmented Neutrophils % 80.8 %; White Blood Count 6.7 K/mcL (4.3-11.1)
[2021-03-03 03:04] LABS: Calcium 9.9 mg/dL (8.6-10.3); Potassium 4.2 mEq/L (3.5-5.1)
[2021-03-03] MEDS: Acetylcysteine 10% 2 ML INHSOL IH SCH ×6 (03:57→23:28)
[2021-03-03] MEDS: Ipratropium/Albuterol Neb 3 ML IH SCH ×6 (03:57→23:28)
[2021-03-03] MEDS: *HR* Metoprolol 5 MG/5 ML VIAL IVP PRN (04:35)
[2021-03-03] MEDS: Aspirin Enteric Coated 81 MG Tablet PO SCH (07:46)
[2021-03-03] MEDS: QUEtiapine Fumarate 25 MG TABLET PO SCH ×2 (07:46→20:36)
[2021-03-03] MEDS: Cholecalciferol (D-3) 1,000 UNIT (25MCG) TABLET PO SCH (07:46)
[2021-03-03] MEDS: Insulin LISPRO 300 UNITS/3 ML VIAL SUBQ SCH ×3 (07:47→16:30)
[2021-03-03] MEDS: Folic Acid 1 MG TABLET PO SCH (07:47)
[2021-03-03] MEDS: Apixaban 5 MG TABLET PO SCH ×2 (07:47→20:38)
[2021-03-03] MEDS ORDERED: 0.9 % Sodium Chloride 250 ML IVC PRN (08:05)
[2021-03-03] MEDS ORDERED: *HR* Heparin 10,000 UNIT/10 ML VIAL IV PRN (08:05)
[2021-03-03] MEDS ORDERED: Metoprolol XL (24 HR) Succ 25 MG TAB.ER.24H PO SCH (09:00)
[2021-03-03 14:45] LABS: ANA IgG by ELISA NONE DETECTED (None Detected)
[2021-03-03] MEDS: Metoprolol XL (24 HR) Succ 25 MG TAB.ER.24H PO SCH (20:37)
[2021-03-03] MEDS: Gabapentin 100 MG CAPSULE PO SCH (20:37)
[2021-03-03] MEDS: Insulin DETEMIR 100 UNIT/ML X5UNITS SUBQ SCH (20:41)
[2021-03-04] MEDS: *HR* Metoprolol 5 MG/5 ML VIAL IVP PRN ×2 (00:27→17:55)
[2021-03-04] MEDS: Ipratropium/Albuterol Neb 3 ML IH SCH ×6 (03:34→23:37)
[2021-03-04] MEDS: Acetylcysteine 10% 2 ML INHSOL IH SCH ×6 (03:34→23:38)
[2021-03-04 06:12] LABS: Basophils % 0.7 %; Eosinophils # 0.2 K/mcL (0.0-0.6); Hematocrit 28.8 % (35.3-44.9); Hemoglobin 8.6 g/dL (11.5-15.4); Immature Granulocytes % 0.6 % (0-4); Lymphocytes # 0.7 K/mcL (0.6-4.6); Lymphocytes % 12.7 %; Mean Corpuscular HGB Conc 29.9 g/dL (31.6-35.5); Mean Corpuscular Hemoglobin 29.8 pg (28.0-33.3); Mean Corpuscular Volume 99.7 fL (83.0-100.0); Mean Platelet Volume 9.3 fL (9.4-12.4); Monocytes # 0.5 K/mcL (0.0-1.3); Monocytes % 9.5 %; Neutrophils # 3.9 K/mcL (1.6-8.9); Platelet Count 231 K/mcL (140-400); Red Blood Count 2.89 M/mcL (3.82-4.97); Red Cell Distribution Width 17.3 % (11.5-14.5); Segmented Neutrophils % 73.5 %; White Blood Count 5.4 K/mcL (4.3-11.1)
[2021-03-04 06:57] LABS: Calcium 10.2 mg/dL (8.6-10.3)
[2021-03-04] MEDS: Cholecalciferol (D-3) 1,000 UNIT (25MCG) TABLET PO SCH (08:31)
[2021-03-04] MEDS: QUEtiapine Fumarate 25 MG TABLET PO SCH ×2 (08:32→21:11)
[2021-03-04] MEDS: Folic Acid 1 MG TABLET PO SCH (08:32)
[2021-03-04] MEDS: Aspirin Enteric Coated 81 MG Tablet PO SCH (08:32)
[2021-03-04] MEDS: Metoprolol XL (24 HR) Succ 25 MG TAB.ER.24H PO SCH ×2 (08:33→21:12)
[2021-03-04] MEDS: Apixaban 5 MG TABLET PO SCH ×2 (08:34→21:10)
[2021-03-04] MEDS: Insulin LISPRO 300 UNITS/3 ML VIAL SUBQ SCH ×3 (10:17→17:23)
[2021-03-04 10:58] LABS: Serine Protease-3 Antibody 0 AU/mL (0-19)
[2021-03-04] MEDS: Gabapentin 100 MG CAPSULE PO SCH (21:12)
[2021-03-04] MEDS: Insulin DETEMIR 100 UNIT/ML X5UNITS SUBQ SCH (21:17)
[2021-03-05] MEDS: *HR* Metoprolol 5 MG/5 ML VIAL IVP PRN (03:17)
[2021-03-05 03:24] LABS: Hematocrit 30.1 % (35.3-44.9); Hemoglobin 9.1 g/dL (11.5-15.4); Mean Corpuscular HGB Conc 30.2 g/dL (31.6-35.5); Mean Corpuscular Hemoglobin 30.4 pg (28.0-33.3); Mean Corpuscular Volume 100.7 fL (83.0-100.0); Mean Platelet Volume 9.8 fL (9.4-12.4); Platelet Count 241 K/mcL (140-400); Red Blood Count 2.99 M/mcL (3.82-4.97); Red Cell Distribution Width 17.9 % (11.5-14.5); White Blood Count 7.3 K/mcL (4.3-11.1)
[2021-03-05] MEDS: Ipratropium/Albuterol Neb 3 ML IH SCH ×6 (03:42→23:35)
[2021-03-05] MEDS: Acetylcysteine 10% 2 ML INHSOL IH SCH ×6 (03:42→23:35)
[2021-03-05 03:49] LABS: Potassium 4.8 mEq/L (3.5-5.1)
[2021-03-05] MEDS: Sennosides/Docusate Sodium TABLET PO PRN (05:18)
[2021-03-05] MEDS ORDERED: 0.9 % Sodium Chloride 250 ML IVC PRN (07:50)
[2021-03-05] MEDS ORDERED: *HR* Heparin 10,000 UNIT/10 ML VIAL IV PRN (07:50)
[2021-03-05] MEDS ORDERED: 0.9 % Sodium Chloride 1,000 ML PRIME SCH (08:00)
[2021-03-05] MEDS: Insulin LISPRO 300 UNITS/3 ML VIAL SUBQ SCH ×3 (08:06→17:02)
[2021-03-05] MEDS: Folic Acid 1 MG TABLET PO SCH (08:08)
[2021-03-05] MEDS: QUEtiapine Fumarate 25 MG TABLET PO SCH ×2 (08:08→19:52)
[2021-03-05] MEDS: Aspirin Enteric Coated 81 MG Tablet PO SCH (08:08)
[2021-03-05] MEDS: Metoprolol XL (24 HR) Succ 25 MG TAB.ER.24H PO SCH ×2 (08:08→19:52)
[2021-03-05] MEDS: Apixaban 5 MG TABLET PO SCH ×2 (08:09→19:51)
[2021-03-05] MEDS: Cholecalciferol (D-3) 1,000 UNIT (25MCG) TABLET PO SCH (08:09)
[2021-03-05] MEDS: Gabapentin 100 MG CAPSULE PO SCH (19:52)
[2021-03-05] MEDS: Insulin DETEMIR 100 UNIT/ML X5UNITS SUBQ SCH (19:53)
[2021-03-06 02:11] LABS: Hemoglobin 9.1 g/dL (11.5-15.4); Mean Corpuscular HGB Conc 31.4 g/dL (31.6-35.5); Mean Corpuscular Hemoglobin 31.2 pg (28.0-33.3); Mean Corpuscular Volume 99.3 fL (83.0-100.0); Mean Platelet Volume 9.9 fL (9.4-12.4); Platelet Count 227 K/mcL (140-400); Red Blood Count 2.92 M/mcL (3.82-4.97); Red Cell Distribution Width 18.1 % (11.5-14.5); White Blood Count 7.1 K/mcL (4.3-11.1)
[2021-03-06 02:27] LABS: Calcium 9.3 mg/dL (8.6-10.3); Potassium 4.1 mEq/L (3.5-5.1)
[2021-03-06] MEDS: Acetylcysteine 10% 2 ML INHSOL IH SCH ×6 (04:00→23:48)
[2021-03-06] MEDS: Ipratropium/Albuterol Neb 3 ML IH SCH ×6 (04:00→23:48)
[2021-03-06] MEDS: Insulin LISPRO 300 UNITS/3 ML VIAL SUBQ SCH ×3 (07:48→18:45)
[2021-03-06] MEDS: Aspirin Enteric Coated 81 MG Tablet PO SCH (07:49)
[2021-03-06] MEDS: QUEtiapine Fumarate 25 MG TABLET PO SCH ×2 (07:49→20:11)
[2021-03-06] MEDS: Folic Acid 1 MG TABLET PO SCH (07:49)
[2021-03-06] MEDS: Cholecalciferol (D-3) 1,000 UNIT (25MCG) TABLET PO SCH (07:49)
[2021-03-06] MEDS: Metoprolol XL (24 HR) Succ 25 MG TAB.ER.24H PO SCH ×2 (07:50→20:10)
[2021-03-06] MEDS: Apixaban 5 MG TABLET PO SCH ×2 (07:50→20:10)
[2021-03-06 17:31] LABS: Albumin 4.2 g/dL (3.5-5.7); Albumin/Globulin Ratio 1.8 (1.1-2.2); Bilirubin,Direct 0.9 mg/dL (0.0-0.2); Bilirubin,Indirect 0.6 mg/dL (0.0-1.0); Bilirubin,Total 1.5 mg/dL (0.3-1.0); Globulin 2.3 g/dL (2.4-3.5); Total Protein 6.5 g/dL (6.4-8.9)
[2021-03-06] MEDS: *HR* Amiodarone 200 MG TABLET PO SCH (20:09)
[2021-03-06] MEDS: Gabapentin 100 MG CAPSULE PO SCH (20:11)
[2021-03-06] MEDS: *HR* Metoprolol 5 MG/5 ML VIAL IVP PRN (20:18)
[2021-03-06] MEDS: Insulin DETEMIR 100 UNIT/ML X5UNITS SUBQ SCH (20:18)
[2021-03-07] MEDS: *HR* Metoprolol 5 MG/5 ML VIAL IVP PRN (00:52)
[2021-03-07 03:01] LABS: Hematocrit 29.9 % (35.3-44.9); Hemoglobin 9.2 g/dL (11.5-15.4); Mean Corpuscular HGB Conc 30.8 g/dL (31.6-35.5); Mean Corpuscular Hemoglobin 30.4 pg (28.0-33.3); Mean Corpuscular Volume 98.7 fL (83.0-100.0); Mean Platelet Volume 9.9 fL (9.4-12.4); Platelet Count 236 K/mcL (140-400); Red Blood Count 3.03 M/mcL (3.82-4.97); Red Cell Distribution Width 18.4 % (11.5-14.5); White Blood Count 8.5 K/mcL (4.3-11.1)
[2021-03-07 03:17] LABS: Calcium 9.8 mg/dL (8.6-10.3); Potassium 4.4 mEq/L (3.5-5.1)
[2021-03-07] MEDS ORDERED: *HR* Metoprolol 5 MG/5 ML VIAL IVP ONE ×2 (03:23→03:27)
[2021-03-07] MEDS: Acetylcysteine 10% 2 ML INHSOL IH SCH ×6 (03:47→23:38)
[2021-03-07] MEDS: Ipratropium/Albuterol Neb 3 ML IH SCH ×6 (03:48→23:38)
[2021-03-07] MEDS: Insulin LISPRO 300 UNITS/3 ML VIAL SUBQ SCH ×3 (07:34→16:56)
[2021-03-07] MEDS ORDERED: *HR* Heparin 10,000 UNIT/10 ML VIAL IV PRN (07:56)
[2021-03-07] MEDS ORDERED: 0.9 % Sodium Chloride 250 ML IVC PRN (07:56)
[2021-03-07] MEDS ORDERED: 0.9 % Sodium Chloride 1,000 ML PRIME SCH (08:00)
[2021-03-07] MEDS: Aspirin Enteric Coated 81 MG Tablet PO SCH (09:37)
[2021-03-07] MEDS: Folic Acid 1 MG TABLET PO SCH (09:38)
[2021-03-07] MEDS: Apixaban 5 MG TABLET PO SCH ×2 (09:38→22:12)
[2021-03-07] MEDS: *HR* Amiodarone 200 MG TABLET PO SCH ×2 (09:38→22:13)
[2021-03-07] MEDS: QUEtiapine Fumarate 25 MG TABLET PO SCH ×2 (09:39→22:12)
[2021-03-07] MEDS: Metoprolol XL (24 HR) Succ 25 MG TAB.ER.24H PO SCH ×2 (09:40→22:13)
[2021-03-07] MEDS: Cholecalciferol (D-3) 1,000 UNIT (25MCG) TABLET PO SCH (09:40)
[2021-03-07] MEDS: Gabapentin 100 MG CAPSULE PO SCH (22:12)
[2021-03-08] MEDS: Acetylcysteine 10% 2 ML INHSOL IH SCH ×6 (03:29→23:30)
[2021-03-08] MEDS: Ipratropium/Albuterol Neb 3 ML IH SCH ×6 (03:29→23:29)
[2021-03-08 06:48] LABS: Hematocrit 30.1 % (35.3-44.9); Hemoglobin 9.2 g/dL (11.5-15.4); Mean Corpuscular HGB Conc 30.6 g/dL (31.6-35.5); Mean Corpuscular Hemoglobin 30.2 pg (28.0-33.3); Mean Corpuscular Volume 98.7 fL (83.0-100.0); Mean Platelet Volume 10.1 fL (9.4-12.4); Platelet Count 230 K/mcL (140-400); Red Blood Count 3.05 M/mcL (3.82-4.97); Red Cell Distribution Width 18.7 % (11.5-14.5); White Blood Count 8.2 K/mcL (4.3-11.1)
[2021-03-08 07:08] LABS: Calcium 9.6 mg/dL (8.6-10.3); Potassium 5.2 mEq/L (3.5-5.1)
[2021-03-08] MEDS ORDERED: 0.9 % Sodium Chloride 250 ML IVC PRN (07:40)
[2021-03-08] MEDS ORDERED: *HR* Heparin 10,000 UNIT/10 ML VIAL IV PRN (07:40)
[2021-03-08] MEDS ORDERED: 0.9 % Sodium Chloride 1,000 ML PRIME SCH (07:45)
[2021-03-08] MEDS: Insulin LISPRO 300 UNITS/3 ML VIAL SUBQ SCH ×3 (08:00→17:18)
[2021-03-08] MEDS: QUEtiapine Fumarate 25 MG TABLET PO SCH ×2 (12:52→22:12)
[2021-03-08] MEDS: Folic Acid 1 MG TABLET PO SCH (12:52)
[2021-03-08] MEDS: Metoprolol XL (24 HR) Succ 25 MG TAB.ER.24H PO SCH ×2 (12:52→22:12)
[2021-03-08] MEDS: Cholecalciferol (D-3) 1,000 UNIT (25MCG) TABLET PO SCH (12:52)
[2021-03-08] MEDS: Aspirin Enteric Coated 81 MG Tablet PO SCH (12:52)
[2021-03-08] MEDS: *HR* Amiodarone 200 MG TABLET PO SCH ×2 (12:52→22:12)
[2021-03-08] MEDS: Apixaban 5 MG TABLET PO SCH (12:53)
[2021-03-08] MEDS: Insulin DETEMIR 100 UNIT/ML X5UNITS SUBQ SCH (17:18)
[2021-03-08] MEDS: Gabapentin 100 MG CAPSULE PO SCH (22:12)
[2021-03-08] MEDS ORDERED: Melatonin 3 MG TABLET PO ONE (23:54)
[2021-03-09 03:19] LABS: Hemoglobin 8.9 g/dL (11.5-15.4); Mean Corpuscular HGB Conc 30.7 g/dL (31.6-35.5); Mean Corpuscular Hemoglobin 30.5 pg (28.0-33.3); Mean Corpuscular Volume 99.3 fL (83.0-100.0); Mean Platelet Volume 10.4 fL (9.4-12.4); Platelet Count 183 K/mcL (140-400); Red Blood Count 2.92 M/mcL (3.82-4.97); Red Cell Distribution Width 19.5 % (11.5-14.5); White Blood Count 8.8 K/mcL (4.3-11.1)
[2021-03-09 03:38] LABS: Calcium 9.2 mg/dL (8.6-10.3); Potassium 4.4 mEq/L (3.5-5.1)
[2021-03-09] MEDS: Acetylcysteine 10% 2 ML INHSOL IH SCH ×6 (03:40→23:17)
[2021-03-09] MEDS: Ipratropium/Albuterol Neb 3 ML IH SCH ×6 (03:40→23:17)
[2021-03-09] MEDS ORDERED: 0.9 % Sodium Chloride 250 ML IVC PRN (07:37)
[2021-03-09] MEDS ORDERED: *HR* Heparin 10,000 UNIT/10 ML VIAL IV PRN (07:37)
[2021-03-09] MEDS ORDERED: 0.9 % Sodium Chloride 1,000 ML PRIME SCH (07:45)
[2021-03-09] MEDS: Insulin LISPRO 300 UNITS/3 ML VIAL SUBQ SCH ×3 (08:08→16:57)
[2021-03-09] MEDS: QUEtiapine Fumarate 25 MG TABLET PO SCH ×2 (08:09→20:24)
[2021-03-09] MEDS: Aspirin Enteric Coated 81 MG Tablet PO SCH (08:09)
[2021-03-09] MEDS: Cholecalciferol (D-3) 1,000 UNIT (25MCG) TABLET PO SCH (08:09)
[2021-03-09] MEDS: Folic Acid 1 MG TABLET PO SCH (08:09)
[2021-03-09] MEDS: Sennosides/Docusate Sodium TABLET PO PRN (08:24)
[2021-03-09] MEDS: Insulin DETEMIR 100 UNIT/ML X5UNITS SUBQ SCH (10:40)
[2021-03-09] MEDS: Metoprolol XL (24 HR) Succ 25 MG TAB.ER.24H PO SCH ×2 (13:50→20:27)
[2021-03-09] MEDS: *HR* Amiodarone 200 MG TABLET PO SCH ×2 (13:50→20:24)
[2021-03-09] MEDS: Gabapentin 100 MG CAPSULE PO SCH (20:24)
[2021-03-09] MEDS ORDERED: Melatonin 3 MG TABLET PO PRN (20:43)
[2021-03-10] MEDS: Acetylcysteine 10% 2 ML INHSOL IH SCH ×6 (04:01→23:14)
[2021-03-10] MEDS: Ipratropium/Albuterol Neb 3 ML IH SCH ×6 (04:01→23:14)
[2021-03-10 05:28] LABS: Hematocrit 30.3 % (35.3-44.9); Hemoglobin 9.4 g/dL (11.5-15.4); Mean Corpuscular Hemoglobin 31.9 pg (28.0-33.3); Mean Corpuscular Volume 102.7 fL (83.0-100.0); Mean Platelet Volume 11.1 fL (9.4-12.4); Platelet Count 101 K/mcL (140-400); Red Blood Count 2.95 M/mcL (3.82-4.97); Red Cell Distribution Width 20.2 % (11.5-14.5); White Blood Count 8.6 K/mcL (4.3-11.1)
[2021-03-10 06:08] LABS: Magnesium 1.9 mg/dL (1.6-2.6); Phosphorous 2.8 mg/dL (2.7-4.5)
[2021-03-10 06:10] LABS: Potassium 4.7 mEq/L (3.5-5.1)
[2021-03-10] MEDS: *HR* Amiodarone 200 MG TABLET PO SCH ×2 (09:25→20:50)
[2021-03-10] MEDS: Folic Acid 1 MG TABLET PO SCH (09:25)
[2021-03-10] MEDS: Cholecalciferol (D-3) 1,000 UNIT (25MCG) TABLET PO SCH (09:25)
[2021-03-10] MEDS: QUEtiapine Fumarate 25 MG TABLET PO SCH ×2 (09:25→20:50)
[2021-03-10] MEDS: Metoprolol XL (24 HR) Succ 25 MG TAB.ER.24H PO SCH ×2 (09:25→20:50)
[2021-03-10] MEDS: Aspirin Enteric Coated 81 MG Tablet PO SCH (09:25)
[2021-03-10] MEDS: Insulin LISPRO 300 UNITS/3 ML VIAL SUBQ SCH ×3 (09:32→16:57)
[2021-03-10] MEDS: Insulin DETEMIR 100 UNIT/ML X5UNITS SUBQ SCH (09:33)
[2021-03-10] MEDS ORDERED: *HR* Heparin 10,000 UNIT/10 ML VIAL IV PRN (14:51)
[2021-03-10] MEDS ORDERED: 0.9 % Sodium Chloride 250 ML IVC PRN (14:51)
[2021-03-10] MEDS ORDERED: 0.9 % Sodium Chloride 1,000 ML PRIME SCH (15:00)
[2021-03-10] MEDS: Sennosides/Docusate Sodium TABLET PO PRN (18:17)
[2021-03-10] MEDS: Gabapentin 100 MG CAPSULE PO SCH (20:50)
[2021-03-11 02:31] LABS: INR 1.9; Prothrombin Time 21.1 Seconds (9.4-12.1)
[2021-03-11 02:47] LABS: Calcium 9.2 mg/dL (8.6-10.3); Phosphorous 4.2 mg/dL (2.7-4.5); Potassium 4.9 mEq/L (3.5-5.1)
[2021-03-11] MEDS: Ipratropium/Albuterol Neb 3 ML IH SCH ×5 (03:26→19:53)
[2021-03-11] MEDS: Acetylcysteine 10% 2 ML INHSOL IH SCH ×5 (03:26→19:53)
[2021-03-11] MEDS: Insulin LISPRO 300 UNITS/3 ML VIAL SUBQ SCH ×3 (07:47→16:36)
[2021-03-11] MEDS: Insulin DETEMIR 100 UNIT/ML X5UNITS SUBQ SCH (08:44)
[2021-03-11] MEDS ORDERED: *HR* FentaNYL (PF) 100 MCG/2 ML VIAL IVP ONE (10:52)
[2021-03-11] MEDS ORDERED: *HR* Midazolam HCl 2 MG/2 ML VIAL IVP ONE (10:53)
[2021-03-11] MEDS ORDERED: Heparin 1,000 UNITS/500 mL 500 ML ONE (10:54)
[2021-03-11] MEDS ORDERED: Lidocaine/EPI 1:100k 1% 50 ML VIAL ONE (10:54)
[2021-03-11] MEDS ORDERED: 0.9 % Sodium Chloride 500 ML ONE (10:56)
[2021-03-11] MEDS ORDERED: *HR* FentaNYL (PF) 100 MCG/2 ML VIAL ONE (10:56)
[2021-03-11] MEDS ORDERED: *HR* Midazolam HCl 2 MG/2 ML VIAL ONE (10:56)
[2021-03-11] MEDS ORDERED: CeFAZolin 2,000MG/50ML DUPLEX 2,000 MG/50 ML BAG IVPB ONE (11:00)
[2021-03-11] MEDS ORDERED: *HR* Heparin 5,000 UNIT/ML VIAL ONE (11:05)
[2021-03-11] MEDS ORDERED: 0.9 % Sodium Chloride 250 ML IVC SCH (12:45)
[2021-03-11] MEDS: Folic Acid 1 MG TABLET PO SCH (13:20)
[2021-03-11] MEDS: Aspirin Enteric Coated 81 MG Tablet PO SCH (13:20)
[2021-03-11] MEDS: *HR* Amiodarone 200 MG TABLET PO SCH ×2 (13:20→21:18)
[2021-03-11] MEDS: Cholecalciferol (D-3) 1,000 UNIT (25MCG) TABLET PO SCH (13:20)
[2021-03-11] MEDS: Metoprolol XL (24 HR) Succ 25 MG TAB.ER.24H PO SCH ×2 (13:20→21:17)
[2021-03-11] MEDS: QUEtiapine Fumarate 25 MG TABLET PO SCH ×2 (13:20→21:14)
[2021-03-11] MEDS ORDERED: Acetaminophen 325 MG TABLET PO PRN (16:40)
[2021-03-11] MEDS: Gabapentin 100 MG CAPSULE PO SCH (21:14)
[2021-03-12] MEDS: Acetylcysteine 10% 2 ML INHSOL IH SCH ×5 (00:23→15:21)
[2021-03-12] MEDS: Ipratropium/Albuterol Neb 3 ML IH SCH ×5 (00:23→15:21)
[2021-03-12 03:06] LABS: Basophils # 0.1 K/mcL (0.0-0.2); Basophils % 0.7 %; Eosinophils # 0.1 K/mcL (0.0-0.6); Eosinophils % 1.4 %; Hematocrit 28.5 % (35.3-44.9); Hemoglobin 8.9 g/dL (11.5-15.4); Immature Granulocytes % 0.4 % (0-4); Lymphocytes # 0.7 K/mcL (0.6-4.6); Lymphocytes % 10.2 %; Mean Corpuscular HGB Conc 31.2 g/dL (31.6-35.5); Mean Corpuscular Hemoglobin 31.6 pg (28.0-33.3); Mean Corpuscular Volume 101.1 fL (83.0-100.0); Mean Platelet Volume 10.6 fL (9.4-12.4); Monocytes # 0.6 K/mcL (0.0-1.3); Monocytes % 9.1 %; Neutrophils # 5.5 K/mcL (1.6-8.9); Platelet Count 138 K/mcL (140-400); Red Blood Count 2.82 M/mcL (3.82-4.97); Red Cell Distribution Width 20.6 % (11.5-14.5); Segmented Neutrophils % 78.2 %
[2021-03-12 03:22] LABS: Calcium 8.9 mg/dL (8.6-10.3); Phosphorous 3.6 mg/dL (2.7-4.5); Potassium 3.7 mEq/L (3.5-5.1)
[2021-03-12 06:30] VITALS: PULSE 83
[2021-03-12] MEDS: QUEtiapine Fumarate 25 MG TABLET PO SCH (07:35)
[2021-03-12] MEDS: Aspirin Enteric Coated 81 MG Tablet PO SCH (07:35)
[2021-03-12] MEDS: Insulin LISPRO 300 UNITS/3 ML VIAL SUBQ SCH ×2 (07:36→13:09)
[2021-03-12] MEDS: Metoprolol XL (24 HR) Succ 25 MG TAB.ER.24H PO SCH (07:36)
[2021-03-12] MEDS: *HR* Amiodarone 200 MG TABLET PO SCH (07:36)
[2021-03-12] MEDS ORDERED: 0.9 % Sodium Chloride 250 ML IVC PRN (07:43)
[2021-03-12] MEDS: Cholecalciferol (D-3) 1,000 UNIT (25MCG) TABLET PO SCH (08:00)
[2021-03-12] MEDS: Insulin DETEMIR 100 UNIT/ML X5UNITS SUBQ SCH (08:00)
[2021-03-12] MEDS: Folic Acid 1 MG TABLET PO SCH (08:00)
[2021-03-12] MEDS ORDERED: *HR* Heparin 10,000 UNIT/10 ML VIAL IV PRN (11:30)
[2021-03-12 11:53] VITALS: TEMP 97.6
[2021-03-12 12:13] VITALS: BP 113/68
[2021-03-12 15:24] VITALS: O2SAT 98
== END 2021-03-12 15:47 | disposition home health service (06) | DRG 280 ==
LOC: EMEROOARM 12:30 → 3BNU 12:30 → SUATTDRO 16:54 → 3BNU 17:25 → SUATTDRO 02-25 14:13 → 2NENU 02-25 19:05
PROVIDERS: ADMIT Internal Medicine; ATTEND Internal Medicine
PROC: IRPERMA (2021-03-11 12:00)